=== PATIENT | male | born 1985 | race African-American/Black ===

== ENCOUNTER 2018-11-23 15:57 | Inpatient (IN) | payer OTHER, MEDICAID ==
[2018-11-23] VITALS (19 sets, daily range): BP systolic 98–153; BP diastolic 49–82
[~2018-11-23] VITALS: Ht 172.7 cm; Wt 78.0 kg
[2018-11-23] MEDS ORDERED: ONDANSETRON HCL 4MG/2ML INJ IV STA (16:12)
[2018-11-23] MEDS ORDERED: MORPHINE SULFATE 4 MG/ML CPJ (NOT FOR IM USE) IV STA (16:12)
[2018-11-23] MEDS ORDERED: SODIUM CHLORIDE 0.9% 1000ML BAG (SEPSIS BOLUS) IV ONE (16:15)
[2018-11-23] MEDS ORDERED: INSULIN REGULAR (DRIP) 100 UNITS in SODIUM CHLORIDE 0.9% 100 ML IV ONE (16:30)
[2018-11-23 16:48] LABS: BG CARBOXYHEMOGLOBIN 0.3 % (0.5-1.5); BG DEOXYHEMOGLOBIN 1.8 % (0.0-5.0); BG FRACTION INSPIRED OXYGEN 21; BG METHEMOGLOBIN 0.3 % (0.0-1.5); BG OXYGEN SATURATION 98.2 % (92.0-98.5); BG OXYHEMOGLOBIN 97.6 % (94.0-97.0); BG PCO2 < 8.9 mmHg (35.0-45.0); BG PH 7.083 (7.350-7.450); BG PO2 139.5 mmHg (75.0-100.0); BG SAMPLE SITE RIGHT BRACHIAL; BG TOTAL HEMOGLOBIN 16.4 g/dL (12.0-18.0); BG VENT MODE ROOM AIR
[2018-11-23 16:53] LABS: BASOPHILS % 0.9 % (0.0-2.0); EOSINOPHILS % 0.1 % (0.0-5.0); HEMATOCRIT. 51.9 % (42.0-52.0); HEMOGLOBIN. 16.8 g/dL (14.0-18.0); LYMPHOCYTES % 9.6 % (20.0-50.0); MEAN CORPUSCULAR HEMOGLOBIN 31.7 pg (28.0-32.0); MEAN CORPUSCULAR VOLUME 97.9 fL (80.0-94.0); MEAN PLATELET VOLUME 9.2 fl (7.4-10.4); MONOCYTES % 7.5 % (2.0-8.0); NEUTROPHILS % 81.9 % (40.0-76.0); PLATELET 447 x1000/uL (130-400); RED CELL DISTRIBUTION WIDTH 15.5 % (11.6-14.6)
[2018-11-23 16:59] LABS: INR 0.9; PROTHROMBIN TIME 9.6 sec (9.6-11.0)
[2018-11-23 17:17] LABS: CHLORIDE 103 mEq/L (98-107)
[2018-11-23 17:20] LABS: ETHANOL BLOOD < 10 mg/dL
[2018-11-23] MEDS ORDERED: INSULIN REGULAR (DRIP) 100 UNITS in SODIUM CHLORIDE 0.9% 99 ML IV ONE (17:45)
[2018-11-23] MEDS ORDERED: SODIUM CHLORIDE 0.9% 1,000 ML IV ONE (17:48)
[2018-11-23 17:52] LABS: BETA HYDROXYBUTYRATE 15.3 mMol/L (0.0-0.3)
[2018-11-23] MEDS ORDERED: LACTATED RINGERS 1,000 ML IV SCH (18:00)
[2018-11-23] MEDS ORDERED: CEFTRIAXONE 1 G PREMIX 50 ML IV ONE (18:00)
[2018-11-23 18:53] LABS: CLARITY URINE CLEAR (CLEAR); COLOR URINE YELLOW (YELLOW); KETONES URINE 4+ (NEGATIVE); LEUKOCYTE ESTERASE URINE NEGATIVE (NEGATIVE); NITRITE URINE NEGATIVE (NEGATIVE); OCCULT BLOOD URINE 1+ (NEGATIVE); PROTEIN URINE 1+ (NEGATIVE); SPECIFIC GRAVITY URINE 1.018 (1.005-1.030); UROBILINOGEN URINE 0.2 E.U./dL (0.2-1.0)
[2018-11-23 19:20] LABS: *AMPHETAMINES SCREEN URINE NEGATIVE (NEGATIVE); *BARBITURATES SCREEN URINE NEGATIVE (NEGATIVE); *BENZODIAZEPINES SCREEN URINE NEGATIVE (NEGATIVE); *COCAINE SCREEN URINE NEGATIVE (NEGATIVE)
[2018-11-23 19:21] LABS: CANNABINOID URINE SCREEN NEGATIVE (NEGATIVE); METHADONE URINE SCREEN NEGATIVE (NEGATIVE); OPIATES URINE SCREEN PRESUMTIVE POSITIVE (NEGATIVE); PHENCYCLIDINE URINE SCREEN NEGATIVE (NEGATIVE)
[2018-11-23 19:24] LABS: CREATINE KINASE MB FRACTION < 1.0 ng/mL (0.5-3.6)
[2018-11-23 19:33] LABS: CREATINE KINASE 192 IU/L (39-308)
[2018-11-23] MEDS ORDERED: INSULIN REGULAR (DRIP) 100 UNITS in SODIUM CHLORIDE 0.9% 100 ML IV SCH (20:15)
[2018-11-23] MEDS ORDERED: DEXTROSE 50% WATER 50ML SYRINGE IV PRN ×3 (20:15→20:45)
[2018-11-23] MEDS ORDERED: ONDANSETRON HCL 4MG/2ML INJ IV PRN (20:15)
[2018-11-23] MEDS: SODIUM CHLORIDE 0.9% 1,000 ML IV SCH (20:51)
[2018-11-23] MEDS: BLOOD SUGAR DIAGNOSTIC STRIP TEST SCH ×3 (21:00→23:05)
[2018-11-23] MEDS: INSULIN REGULAR (DRIP) 100 UNITS in SODIUM CHLORIDE 0.9% 99 ML IV SCH (21:27)
[2018-11-23 21:36] LABS: BG BASE EXCESS -22.5 mmol/L (-2.0-2.0); BG CARBOXYHEMOGLOBIN 0.2 % (0.5-1.5); BG DEOXYHEMOGLOBIN 1.7 % (0.0-5.0); BG FRACTION INSPIRED OXYGEN 21; BG HCO3 ACT 4.3 mmol/L (22.0-26.0); BG METHEMOGLOBIN 0.3 % (0.0-1.5); BG OXYGEN SATURATION 98.3 % (92.0-98.5); BG OXYHEMOGLOBIN 97.8 % (94.0-97.0); BG PCO2 13.5 mmHg (35.0-45.0); BG PH 7.125 (7.350-7.450); BG PO2 127.7 mmHg (75.0-100.0); BG SAMPLE SITE RIGHT RADIAL; BG TOTAL HEMOGLOBIN 14.9 g/dL (12.0-18.0); BG VENT MODE ROOM AIR
[2018-11-24] VITALS (88 sets, daily range): BP systolic 94–153; BP diastolic 35–111
[2018-11-24] MEDS: MORPHINE SULFATE 2 MG/ML CPJ (NOT FOR IM USE) IV PRN ×4 (00:37→22:38)
[2018-11-24] MEDS: BLOOD SUGAR DIAGNOSTIC STRIP TEST SCH ×24 (01:08→23:00)
[2018-11-24] MEDS: SODIUM CHLORIDE 0.9% 1,000 ML IV SCH ×2 (04:28→12:48)
[2018-11-24 09:37] LABS: BG BASE EXCESS -14.7 mmol/L (-2.0-2.0); BG CARBOXYHEMOGLOBIN 0.6 % (0.5-1.5); BG DEOXYHEMOGLOBIN 2.1 % (0.0-5.0); BG FRACTION INSPIRED OXYGEN 21; BG HCO3 ACT 10.3 mmol/L (22.0-26.0); BG METHEMOGLOBIN 0.3 % (0.0-1.5); BG OXYGEN SATURATION 97.9 % (92.0-98.5); BG PCO2 23.5 mmHg (35.0-45.0); BG PH 7.259 (7.350-7.450); BG PO2 98.4 mmHg (75.0-100.0); BG SAMPLE SITE RIGHT RADIAL; BG TOTAL HEMOGLOBIN 15.5 g/dL (12.0-18.0); BG VENT MODE ROOM AIR
[2018-11-24 11:29] LABS: HEMATOCRIT. 43.5 % (42.0-52.0); HEMOGLOBIN. 14.7 g/dL (14.0-18.0); MEAN CORPUSCULAR HEMOGLOBIN 30.7 pg (28.0-32.0); MEAN CORPUSCULAR VOLUME 91.1 fL (80.0-94.0); PLATELET 349 x1000/uL (130-400); RED BLOOD CELL COUNT 4.77 mill/uL (4.7-6.1); RED CELL DISTRIBUTION WIDTH 14.3 % (11.6-14.6)
[2018-11-24 12:07] LABS: CHLORIDE 111 mEq/L (98-107)
[2018-11-24 12:13] LABS: PHOSPHORUS 1.6 mg/dL (2.5-4.9)
[2018-11-24] MEDS: METOCLOPRAMIDE HCL 10MG/2ML VIAL IV SCH ×2 (13:29→18:05)
[2018-11-24] MEDS ORDERED: POTASSIUM PHOS,M-BASIC-D-BASIC 15 MMOL in DEXT 5% WATER 245 ML IV ONE (14:00)
[2018-11-24 14:36] LABS: PLATELET ESTIMATE NORMAL
[2018-11-24 16:31] LABS: AMYLASE 2236 IU/L (25-115)
[2018-11-24] MEDS: CEFTRIAXONE 1 G PREMIX 50 ML IV SCH (20:28)
[2018-11-24] MEDS: DEXT 5%/0.45% NACL KCL 30MEQ/L 1,000 ML IV SCH (20:28)
[2018-11-25] VITALS (57 sets, daily range): BP systolic 99–146; BP diastolic 47–72
[2018-11-25] MEDS: BLOOD SUGAR DIAGNOSTIC STRIP TEST SCH ×14 (01:32→23:58)
[2018-11-25] MEDS: DEXT 5%/0.45% NACL KCL 30MEQ/L 1,000 ML IV SCH ×3 (04:04→17:55)
[2018-11-25] MEDS: INSULIN REGULAR (DRIP) 100 UNITS in SODIUM CHLORIDE 0.9% 99 ML IV SCH (06:21)
[2018-11-25] MEDS: METOCLOPRAMIDE HCL 10MG/2ML VIAL IV SCH ×4 (06:21→18:45)
[2018-11-25 08:26] LABS: BASOPHILS % 0.3 % (0.0-2.0); EOSINOPHILS % 0.5 % (0.0-5.0); HEMATOCRIT. 35.7 % (42.0-52.0); HEMOGLOBIN. 12.3 g/dL (14.0-18.0); LYMPHOCYTES % 7.7 % (20.0-50.0); MEAN CORPUSCULAR HEMOGLOBIN 31.3 pg (28.0-32.0); MEAN CORPUSCULAR VOLUME 90.8 fL (80.0-94.0); MEAN PLATELET VOLUME 8.8 fl (7.4-10.4); MONOCYTES % 8.8 % (2.0-8.0); NEUTROPHILS % 82.7 % (40.0-76.0); PLATELET 235 x1000/uL (130-400); RED BLOOD CELL COUNT 3.93 mill/uL (4.7-6.1); RED CELL DISTRIBUTION WIDTH 14.7 % (11.6-14.6)
[2018-11-25 08:56] LABS: CHLORIDE 109 mEq/L (98-107)
[2018-11-25 09:03] LABS: BETA HYDROXYBUTYRATE 1.6 mMol/L (0.0-0.3)
[2018-11-25 09:04] LABS: AMYLASE 802 IU/L (25-115)
[2018-11-25] MEDS ORDERED: POTASSIUM CHLORIDE INJ 40 MEQ in DEXT 5% WATER 250 ML IV NR (10:30)
[2018-11-25] MEDS ORDERED: DEXTROSE 50% WATER 50ML SYRINGE IV PRN (13:30)
[2018-11-25] MEDS: INSULIN LISPRO 100 UNITS/ML SUBCUT SCH ×2 (16:52→20:18)
[2018-11-25] MEDS: CEFTRIAXONE 1 G PREMIX 50 ML IV SCH (20:29)
[2018-11-25] MEDS ORDERED: INSULIN GLARGINE UD 100 UNITS/ML SYR SUBCUT SCH (22:00)
[2018-11-26] VITALS (13 sets, daily range): BP systolic 87–121; BP diastolic 44–70
[2018-11-26] MEDS: METOCLOPRAMIDE HCL 10MG/2ML VIAL IV SCH ×4 (00:02→18:00)
[2018-11-26] MEDS: INSULIN LISPRO 100 UNITS/ML SUBCUT SCH ×4 (00:02→17:30)
[2018-11-26] MEDS: DEXT 5%/0.45% NACL KCL 30MEQ/L 1,000 ML IV SCH ×2 (00:37→06:03)
[2018-11-26] MEDS: BLOOD SUGAR DIAGNOSTIC STRIP TEST SCH ×3 (04:20→17:30)
[2018-11-26 06:48] LABS: BASOPHILS % 0.4 % (0.0-2.0); EOSINOPHILS % 1.9 % (0.0-5.0); HEMATOCRIT. 33.5 % (42.0-52.0); HEMOGLOBIN. 11.4 g/dL (14.0-18.0); LYMPHOCYTES % 25.2 % (20.0-50.0); MEAN CORPUSCULAR HEMOGLOBIN 31.2 pg (28.0-32.0); MEAN CORPUSCULAR VOLUME 91.5 fL (80.0-94.0); MEAN PLATELET VOLUME 8.5 fl (7.4-10.4); MONOCYTES % 12.2 % (2.0-8.0); NEUTROPHILS % 60.3 % (40.0-76.0); PLATELET 212 x1000/uL (130-400); RED BLOOD CELL COUNT 3.66 mill/uL (4.7-6.1); RED CELL DISTRIBUTION WIDTH 14.5 % (11.6-14.6)
[2018-11-26 07:34] LABS: CHLORIDE 107 mEq/L (98-107)
[2018-11-26 07:36] LABS: AMYLASE 283 IU/L (25-115)
[2018-11-26] MEDS ORDERED: POTASSIUM CHLORIDE 20MEQ/PACKET PO NR (08:00)
[2018-11-26] MEDS ORDERED: POTASSIUM CHLORIDE INJ 40 MEQ in DEXT 5% WATER 250 ML IV ONE (08:00)
[2018-11-26 08:06] LABS: PHOSPHORUS 1.8 mg/dL (2.5-4.9)
[2018-11-26] MEDS ORDERED: INSULIN GLARGINE UD 100 UNITS/ML SYR SUBCUT SCH (10:00)
== END 2018-11-26 18:30 | disposition home or self-care (01) | DRG 420 ==
LOC: ER 17:02 → 5EST 17:26 → EDBD 17:26 → EDBEDREQ 17:28 → ENRESERV 18:14
PROVIDERS: ADMIT Family Medicine Adult Medicine; ATTEND Family Medicine Adult Medicine
DX: E11.10 Type 2 diabetes mellitus with ketoacidosis without coma (principal); G93.41 Metabolic encephalopathy; K85.90 Acute pancreatitis without necrosis or infection, unspecified; R65.10 Systemic inflammatory response syndrome (SIRS) of non-infectious origin without acute organ dysfunction; K31.84 Gastroparesis; E11.43 Type 2 diabetes mellitus with diabetic autonomic (poly)neuropathy; N39.0 Urinary tract infection, site not specified; E87.6 Hypokalemia; B95.1 Streptococcus, group B, as the cause of diseases classified elsewhere; K82.4 Cholesterolosis of gallbladder; Z79.4 Long term (current) use of insulin; Z83.3 Family history of diabetes mellitus; Z91.19 Patient's noncompliance with other medical treatment and regimen
CPT/HCPCS: 36415; 36600; 71045; 74176; 76700; 80048; 80305; 80320; 81003; 82010; 82150; 82375; 82550; 82553; 82805; 82962; 83605; 83735; 83880; 84100; 84145; 84484; 87077; 93005; 93970; 96374; 99285; J0696; J1815; J2270; J2405; J2765; J3480; J3490; J7030; J7050; J7060; G0480

== ENCOUNTER 2019-04-03 08:17 | Inpatient (IN) | payer SELFPAY ==
[~2019-04-03] VITALS: Ht 175.3 cm; Wt 86.3 kg
[2019-04-03] MEDS ORDERED: SODIUM CHLORIDE 0.9% 1,000 ML IV ONE (10:26)
[2019-04-03] MEDS ORDERED: KETOROLAC 30MG/ML VIAL IV STA (10:26)
[2019-04-03 10:42] LABS: BG BASE EXCESS -1.6 mmol/L (-2.0-2.0); BG CARBOXYHEMOGLOBIN 0.7 % (0.5-1.5); BG HCO3 ACT 23.2 mmol/L (22.0-26.0); BG METHEMOGLOBIN 0.2 % (0.0-1.5); BG OXYHEMOGLOBIN 96.1 % (94.0-97.0); BG PCO2 39.5 mmHg (35.0-45.0); BG PH 7.387 (7.350-7.450); BG PO2 89.2 mmHg (75.0-100.0); BG SAMPLE SITE RIGHT BRACHIAL; BG TOTAL HEMOGLOBIN 14.9 g/dL (12.0-18.0); BG VENT MODE ROOM AIR
[2019-04-03 10:43] LABS: BASOPHILS % 0.5 % (0.0-2.0); EOSINOPHILS % 1.1 % (0.0-5.0); HEMATOCRIT. 44.9 % (42.0-52.0); HEMOGLOBIN. 15.3 g/dL (14.0-18.0); LYMPHOCYTES % 19.3 % (20.0-50.0); MEAN CORPUSCULAR HEMOGLOBIN 29.2 pg (28.0-32.0); MEAN CORPUSCULAR VOLUME 85.7 fL (80.0-94.0); MEAN PLATELET VOLUME 8.1 fl (7.4-10.4); MONOCYTES % 6.3 % (2.0-8.0); NEUTROPHILS % 72.8 % (40.0-76.0); PLATELET 304 x1000/uL (130-400); RED BLOOD CELL COUNT 5.24 mill/uL (4.7-6.1); RED CELL DISTRIBUTION WIDTH 13.6 % (11.6-14.6)
[2019-04-03 10:49] LABS: CHLORIDE 102 mEq/L (98-107)
[2019-04-03] MEDS ORDERED: POTASSIUM CHLORIDE 20MEQ TABLET SR PO ONE (11:15)
[2019-04-03] MEDS ORDERED: POTASSIUM CHLORIDE INJ 40 MEQ in DEXT 5% WATER 250 ML IV ONE (11:15)
[2019-04-03 11:54] LABS: CLARITY URINE CLEAR (CLEAR); COLOR URINE YELLOW (YELLOW); KETONES URINE TRACE (NEGATIVE); LEUKOCYTE ESTERASE URINE NEGATIVE (NEGATIVE); NITRITE URINE NEGATIVE (NEGATIVE); OCCULT BLOOD URINE NEGATIVE (NEGATIVE); PH URINE 5.5 (4.5-8.0); PROTEIN URINE NEGATIVE (NEGATIVE); SPECIFIC GRAVITY URINE 1.033 (1.005-1.030); UROBILINOGEN URINE 0.2 E.U./dL (0.2-1.0)
[2019-04-03] MEDS ORDERED: ONDANSETRON HCL 4MG/2ML INJ IV PRN (15:15)
[2019-04-03] MEDS ORDERED: HYDROCODONE/ACETAMINOPHEN 5/325MG TABLET PO PRN (15:15)
[2019-04-03] MEDS ORDERED: ACETAMINOPHEN 325MG TABLET PO PRN (15:15)
[2019-04-03] MEDS ORDERED: GUAIFENESIN 200MG/10ML SUGAR FREE UDC PO PRN (15:15)
[2019-04-03] MEDS ORDERED: CLONIDINE 0.1MG TABLET PO PRN (15:15)
[2019-04-03] MEDS ORDERED: MAGNESIUM/ALUMINUM HYDROXIDE/SIMETHICONE 30ML UDC PO PRN (15:15)
[2019-04-03] MEDS ORDERED: DOCUSATE SODIUM 100MG CAPSULE PO PRN (15:15)
[2019-04-04] VITALS: BP 116/75
[2019-04-04 00:02] VITALS: BP 116/75
[2019-04-04] MEDS ORDERED: INSU500I SQ (00:55)
[2019-04-04] MEDS ORDERED: NPH,100I SQ (00:55)
[2019-04-04] MEDS ORDERED: KCL 10MEQ/50ML PREMIX 50 ML IV NR ×2 (01:00→03:00)
[2019-04-04] MEDS ORDERED: POTASSIUM CHLORIDE INJ 10 MEQ in SODIUM CHLORIDE 0.9% 100 ML IV NR (04:00)
[2019-04-04 04:04] VITALS: BP 106/67
[2019-04-04 07:04] LABS: HEMATOCRIT. 38.4 % (42.0-52.0); HEMOGLOBIN. 13.1 g/dL (14.0-18.0); MEAN CORPUSCULAR HEMOGLOBIN 29.2 pg (28.0-32.0); MEAN CORPUSCULAR VOLUME 85.7 fL (80.0-94.0); MEAN PLATELET VOLUME 8.2 fl (7.4-10.4); PLATELET 282 x1000/uL (130-400); RED BLOOD CELL COUNT 4.48 mill/uL (4.7-6.1)
[2019-04-04 07:47] LABS: CHLORIDE 110 mEq/L (98-107)
[2019-04-04 08:00] VITALS: BP 112/82
[2019-04-04] MEDS ORDERED: MULTIVITAMINS,THER W-MINERALS TABLET PO SCH (09:00)
[2019-04-04 12:00] VITALS: BP 113/82
[2019-04-04] MEDS ORDERED: MAGNESIUM 1 G PREMIX 100 ML IV SCH (13:00)
[2019-04-04 13:46] LABS: PLATELET ESTIMATE NORMAL
== END 2019-04-04 15:45 | disposition home or self-care (01) | DRG 425 ==
LOC: ER 08:46 → 6WST 11:24 → EDBEDREQ 22:51 → ENRESERV 22:59
PROVIDERS: ADMIT Hospitalist; ATTEND Hospitalist
DX: E87.6 Hypokalemia (principal); E11.65 Type 2 diabetes mellitus with hyperglycemia; M62.81 Muscle weakness (generalized); E87.5 Hyperkalemia; F17.200 Nicotine dependence, unspecified, uncomplicated; R94.31 Abnormal electrocardiogram [ECG] [EKG]; Z83.3 Family history of diabetes mellitus
CPT/HCPCS: 36415; 36600; 71045; 81003; 82375; 82805; 82962; 83735; 87804; 93005; 93970; 99291; J1885; J3475; J3480; J7030; J7050; J7060

== ENCOUNTER 2020-12-31 07:55 | Inpatient (IN) | payer MEDICAID, OTHER ==
[~2020-12-31] VITALS: Ht 172.7 cm; Wt 80.3 kg
[~2020-12-31 07:55] MED LIST: INSU500I SQ; NPH,100I SQ
[2020-12-31] MEDS ORDERED: LACTATED RINGERS 1,000 ML IV SCH (08:45)
[2020-12-31] MEDS ORDERED: SODIUM CHLORIDE 0.9% 1,000 ML IV ONE (08:45)
[2020-12-31 09:19] LABS: BASOPHILS % 0.7 % (0.0-2.0); HEMATOCRIT. 51.9 % (42.0-52.0); HEMOGLOBIN. 17.7 g/dL (14.0-18.0); LYMPHOCYTES % 9.1 % (20.0-50.0); MEAN CORPUSCULAR HEMOGLOBIN 30.7 pg (28.0-32.0); MEAN CORPUSCULAR VOLUME 90.2 fL (80.0-94.0); MEAN PLATELET VOLUME 8.2 fl (7.4-10.4); NEUTROPHILS % 84.2 % (40.0-76.0); PLATELET 252 x1000/uL (130-400); RED BLOOD CELL COUNT 5.75 mill/uL (4.7-6.1); RED CELL DISTRIBUTION WIDTH 13.6 % (11.6-14.6)
[2020-12-31 09:22] LABS: CHLORIDE 98 mEq/L (98-107)
[2020-12-31 09:54] LABS: BG BASE EXCESS -23.7 mmol/L (-2.0-2.0); BG CARBOXYHEMOGLOBIN 0.3 % (0.5-1.5); BG DEOXYHEMOGLOBIN 5.4 % (0.0-5.0); BG FRACTION INSPIRED OXYGEN 21; BG HCO3 ACT 3.3 mmol/L (22.0-26.0); BG METHEMOGLOBIN 0.3 % (0.0-1.5); BG OXYGEN SATURATION 94.6 % (92.0-98.5); BG PCO2 10.7 mmHg (35.0-45.0); BG PH 7.104 (7.350-7.450); BG PO2 80.4 mmHg (75.0-100.0); BG SAMPLE SITE LEFT RADIAL; BG TOTAL HEMOGLOBIN 16.4 g/dL (12.0-18.0); BG VENT MODE ROOM AIR
[2020-12-31] MEDS ORDERED: ONDANSETRON HCL 4MG/2ML INJ IV STA (10:23)
[2020-12-31] MEDS ORDERED: DOXYCYCLINE HYCLATE 100 MG/VIAL IV ONE (10:30)
[2020-12-31] MEDS ORDERED: SODIUM CHL 0.45% + KCL 20MEQ/L 1,000 ML IV SCH (10:30)
[2020-12-31] MEDS ORDERED: INSULIN REGULAR (DRIP) 100 UNITS in SODIUM CHLORIDE 0.9% 100 ML IV ONE (10:30)
[2020-12-31] MEDS ORDERED: CEFTRIAXONE 1 G PREMIX 50 ML IV SCH ×2 (10:30→13:00)
[2020-12-31] MEDS ORDERED: DOXYCYCLINE 100 MG in DEXT 5% WATER 100 ML IV SCH (11:00)
[2020-12-31 12:15] LABS: CHLORIDE 104 mEq/L (98-107)
[2020-12-31 12:23] LABS: PHOSPHORUS 4.3 mg/dL (2.5-4.9)
[2020-12-31] MEDS ORDERED: DOCUSATE SODIUM 100MG CAPSULE PO PRN (12:45)
[2020-12-31] MEDS ORDERED: HYDROMORPHONE HCL/PF 2MG/ML CPJ IV PRN (12:45)
[2020-12-31] MEDS ORDERED: ONDANSETRON HCL 4MG/2ML INJ IV PRN (12:45)
[2020-12-31] MEDS ORDERED: MAGNESIUM/ALUMINUM HYDROXIDE/SIMETHICONE 30ML UDC PO PRN (12:45)
[2020-12-31] MEDS ORDERED: DEXTROSE 50% WATER 50ML SYRINGE IV PRN (12:45)
[2020-12-31] MEDS ORDERED: INSULIN REGULAR (DRIP) 100 UNITS in SODIUM CHLORIDE 0.9% 100 ML IV SCH (12:45)
[2020-12-31] MEDS ORDERED: AZITHROMYCIN 500 MG in DEXT 5% WATER 250 ML IV SCH (13:00)
[2020-12-31] MEDS ORDERED: DEXAMETHASONE 4MG/ML 1ML VIAL IV SCH (13:00)
[2020-12-31] MEDS: SODIUM CHLORIDE 0.9% 1,000 ML IV SCH ×2 (13:08→22:28)
[2020-12-31] MEDS: BLOOD SUGAR DIAGNOSTIC STRIP TEST SCH ×10 (13:29→23:45)
[2020-12-31] MEDS ORDERED: NALOXONE HCL 0.4MG/ML VIAL IV PRN (14:15)
[2020-12-31 15:32] LABS: CHLORIDE 110 mEq/L (98-107)
[2020-12-31 18:08] LABS: CHLORIDE 112 mEq/L (98-107)
[2020-12-31 20:23] LABS: CHLORIDE 111 mEq/L (98-107)
[2020-12-31 22:00] VITALS: BP 120/74
[2020-12-31] MEDS: INSULIN REGULAR (DRIP) 100 UNITS in SODIUM CHLORIDE 0.9% 99 ML IV SCH (22:27)
[2020-12-31 22:30] VITALS: BP 115/72
[2020-12-31 23:00] VITALS: BP 107/76
[2020-12-31 23:30] VITALS: BP 105/73
[2021-01-01] VITALS (47 sets, daily range): BP systolic 107–138; BP diastolic 58–80
[2021-01-01] MEDS: BLOOD SUGAR DIAGNOSTIC STRIP TEST SCH ×23 (01:28→23:45)
[2021-01-01 05:47] LABS: BASOPHILS % 0.2 % (0.0-2.0); HEMOGLOBIN. 14.3 g/dL (14.0-18.0); LYMPHOCYTES % 10.8 % (20.0-50.0); MEAN CORPUSCULAR HEMOGLOBIN 30.2 pg (28.0-32.0); MEAN CORPUSCULAR VOLUME 86.5 fL (80.0-94.0); MEAN PLATELET VOLUME 8.6 fl (7.4-10.4); MONOCYTES % 4.1 % (2.0-8.0); NEUTROPHILS % 84.9 % (40.0-76.0); PLATELET 245 x1000/uL (130-400); RED BLOOD CELL COUNT 4.74 mill/uL (4.7-6.1); RED CELL DISTRIBUTION WIDTH 12.8 % (11.6-14.6)
[2021-01-01 05:49] LABS: CHLORIDE 111 mEq/L (98-107)
[2021-01-01] MEDS: SODIUM CHLORIDE 0.9% 1,000 ML IV SCH (09:24)
[2021-01-01] MEDS: DEXAMETHASONE 10 MG/ML VIAL IV SCH (09:24)
[2021-01-01] MEDS ORDERED: SODIUM CHL 0.45% + KCL 20MEQ/L 1,000 ML IV SCH (10:30)
[2021-01-01] MEDS: DEXT 5%/0.45% NACL KCL 10MEQ/L 1,000 ML IV SCH ×2 (13:19→23:00)
[2021-01-01] MEDS: CEFTRIAXONE 1,000 MG in DEXTROSE 5% WATER 50 ML IV SCH (14:21)
[2021-01-01] MEDS: AZITHROMYCIN 500 MG in DEXT 5% WATER 250 ML IV SCH (14:21)
[2021-01-01 16:31] LABS: CHLORIDE 112 mEq/L (98-107)
[2021-01-01] MEDS: OMEPRAZOLE 20MG CAPSULE EXTENDED RELEASE PO SCH (18:45)
[2021-01-01] MEDS: INSULIN REGULAR (DRIP) 100 UNITS in SODIUM CHLORIDE 0.9% 99 ML IV SCH (19:35)
[2021-01-01 23:02] LABS: CHLORIDE 109 mEq/L (98-107)
[2021-01-02] VITALS (43 sets, daily range): BP systolic 106–141; BP diastolic 55–80
[2021-01-02] MEDS: BLOOD SUGAR DIAGNOSTIC STRIP TEST SCH ×17 (00:45→20:45)
[2021-01-02 05:26] LABS: HEMATOCRIT. 37.1 % (42.0-52.0); HEMOGLOBIN. 13.5 g/dL (14.0-18.0); MEAN CORPUSCULAR HEMOGLOBIN 30.5 pg (28.0-32.0); MEAN CORPUSCULAR VOLUME 84.2 fL (80.0-94.0); MEAN PLATELET VOLUME 8.4 fl (7.4-10.4); PLATELET 220 x1000/uL (130-400); RED BLOOD CELL COUNT 4.41 mill/uL (4.7-6.1); RED CELL DISTRIBUTION WIDTH 12.5 % (11.6-14.6)
[2021-01-02 05:35] LABS: D-DIMER 2.12 mg/L FEU (<0.50); INR 0.9; PROTHROMBIN TIME 10.2 sec (9.6-11.0)
[2021-01-02 05:36] LABS: CHLORIDE 109 mEq/L (98-107)
[2021-01-02] MEDS: OMEPRAZOLE 20MG CAPSULE EXTENDED RELEASE PO SCH ×2 (06:07→20:32)
[2021-01-02] MEDS ORDERED: POTASSIUM CHLORIDE INJ 40 MEQ in DEXT 5% WATER 500 ML IV SCH (08:00)
[2021-01-02] MEDS: CEFTRIAXONE 1,000 MG in DEXTROSE 5% WATER 50 ML IV SCH (08:02)
[2021-01-02] MEDS: DEXAMETHASONE 10 MG/ML VIAL IV SCH (08:03)
[2021-01-02] MEDS: DEXT 5%/0.45% NACL KCL 10MEQ/L 1,000 ML IV SCH (08:07)
[2021-01-02] MEDS ORDERED: POTASSIUM CHLORIDE 20MEQ TABLET SR PO NR (11:00)
[2021-01-02] MEDS: INSULIN REGULAR (DRIP) 100 UNITS in SODIUM CHLORIDE 0.9% 99 ML IV SCH (11:16)
[2021-01-02] MEDS: AZITHROMYCIN 500 MG in DEXT 5% WATER 250 ML IV SCH (11:16)
[2021-01-02 12:57] LABS: PLATELET ESTIMATE NORMAL
[2021-01-02] MEDS: INSULIN GLARGINE UD 100 UNITS/ML SYR SUBCUT SCH ×2 (15:27→23:37)
[2021-01-02 16:28] LABS: *AMPHETAMINES SCREEN URINE NEGATIVE (NEGATIVE); *BARBITURATES SCREEN URINE NEGATIVE (NEGATIVE); *BENZODIAZEPINES SCREEN URINE NEGATIVE (NEGATIVE); *COCAINE SCREEN URINE NEGATIVE (NEGATIVE); METHADONE URINE SCREEN NEGATIVE (NEGATIVE); OPIATES URINE SCREEN NEGATIVE (NEGATIVE); PHENCYCLIDINE URINE SCREEN NEGATIVE (NEGATIVE)
[2021-01-02 16:29] LABS: CANNABINOID URINE SCREEN NEGATIVE (NEGATIVE)
[2021-01-02 17:00] LABS: CHLORIDE 111 mEq/L (98-107)
[2021-01-02] MEDS ORDERED: DEXTROSE 50% WATER 50ML SYRINGE IV PRN (18:00)
[2021-01-02] MEDS: INSULIN LISPRO 100 UNITS/ML SUBCUT SCH (20:33)
[2021-01-03] VITALS (24 sets, daily range): BP systolic 92–152; BP diastolic 52–83
[2021-01-03] MEDS: GUAIFENESIN 200MG/10ML SUGAR FREE UDC PO PRN (02:39)
[2021-01-03 05:21] LABS: HEMATOCRIT. 38.2 % (42.0-52.0); HEMOGLOBIN. 13.7 g/dL (14.0-18.0); MEAN CORPUSCULAR VOLUME 83.8 fL (80.0-94.0); MEAN PLATELET VOLUME 8.8 fl (7.4-10.4); PLATELET 285 x1000/uL (130-400); RED BLOOD CELL COUNT 4.56 mill/uL (4.7-6.1); RED CELL DISTRIBUTION WIDTH 12.8 % (11.6-14.6)
[2021-01-03 05:29] LABS: CHLORIDE 109 mEq/L (98-107)
[2021-01-03] MEDS: OMEPRAZOLE 20MG CAPSULE EXTENDED RELEASE PO SCH ×2 (06:02→22:24)
[2021-01-03] MEDS: INSULIN LISPRO 100 UNITS/ML SUBCUT SCH ×4 (06:02→22:25)
[2021-01-03] MEDS: BLOOD SUGAR DIAGNOSTIC STRIP TEST SCH ×4 (07:25→21:00)
[2021-01-03] MEDS: CEFTRIAXONE 1,000 MG in DEXTROSE 5% WATER 50 ML IV SCH (08:47)
[2021-01-03] MEDS: DEXAMETHASONE 10 MG/ML VIAL IV SCH (08:47)
[2021-01-03] MEDS ORDERED: ALBUTEROL 6.7GM HFA INHALER ORI PRN (11:00)
[2021-01-03] MEDS: ENOXAPARIN 40MG/0.4ML SYR SUBCUT SCH (12:06)
[2021-01-03] MEDS: AZITHROMYCIN 500 MG in DEXT 5% WATER 250 ML IV SCH (12:07)
[2021-01-03 12:32] LABS: BG BASE EXCESS -11.8 mmol/L (-2.0-2.0); BG CARBOXYHEMOGLOBIN 0.4 % (0.5-1.5); BG OXYHEMOGLOBIN 91.6 % (94.0-97.0); BG PCO2 16.7 mmHg (35.0-45.0); BG PH 7.397 (7.350-7.450); BG PO2 56.8 mmHg (75.0-100.0); BG SAMPLE SITE RIGHT BRACHIAL; BG TOTAL HEMOGLOBIN 14.5 g/dL (12.0-18.0); BG VENT MODE VAPOTHERM
[2021-01-03] MEDS ORDERED: IOHEXOL-350 100 ML BOTTLE ONE (12:37)
[2021-01-03 14:51] LABS: PLATELET ESTIMATE NORMAL
[2021-01-03] MEDS: ACETAMINOPHEN 325MG TABLET PO PRN (17:42)
[2021-01-03] MEDS: INSULIN GLARGINE UD 100 UNITS/ML SYR SUBCUT SCH (22:24)
[2021-01-04] VITALS: BP 105/60
[2021-01-04] MEDS: SODIUM BICARBONATE 100 MEQ in SODIUM CHLORIDE 0.45% 1,000 ML IV SCH (00:10)
[2021-01-04] MEDS: GUAIFENESIN 200MG/10ML SUGAR FREE UDC PO PRN ×2 (01:44→08:24)
[2021-01-04 04:00] VITALS: BP 105/50
[2021-01-04 08:00] VITALS: BP 112/65
[2021-01-04] MEDS: OMEPRAZOLE 20MG CAPSULE EXTENDED RELEASE PO SCH (08:24)
[2021-01-04] MEDS: CEFTRIAXONE 1,000 MG in DEXTROSE 5% WATER 50 ML IV SCH (08:24)
[2021-01-04] MEDS: DEXAMETHASONE 10 MG/ML VIAL IV SCH (08:24)
[2021-01-04] MEDS: ENOXAPARIN 40MG/0.4ML SYR SUBCUT SCH (08:25)
[2021-01-04] MEDS: INSULIN LISPRO 100 UNITS/ML SUBCUT SCH ×4 (08:26→21:35)
[2021-01-04] MEDS: BLOOD SUGAR DIAGNOSTIC STRIP TEST SCH ×4 (08:26→21:35)
[2021-01-04] MEDS: AZITHROMYCIN 500 MG in DEXT 5% WATER 250 ML IV SCH (11:20)
[2021-01-04 12:00] VITALS: BP 115/63
[2021-01-04 16:00] VITALS: BP 113/62
[2021-01-04 20:00] VITALS: BP 11/78
[2021-01-04] MEDS: FAMOTIDINE 20MG TABLET PO SCH (21:34)
[2021-01-04] MEDS: ACETAMINOPHEN 325MG TABLET PO PRN (21:34)
[2021-01-04] MEDS: INSULIN GLARGINE UD 100 UNITS/ML SYR SUBCUT SCH (21:35)
[2021-01-05] VITALS (60 sets, daily range): BP systolic 64–174; BP diastolic 41–113
[2021-01-05] MEDS: ACETAMINOPHEN 325MG TABLET PO PRN (05:42)
[2021-01-05] MEDS: BLOOD SUGAR DIAGNOSTIC STRIP TEST SCH ×4 (07:40→20:46)
[2021-01-05] MEDS ORDERED: ETOMIDATE 2MG/ML 10ML VIAL IV ONE (08:09)
[2021-01-05] MEDS ORDERED: SUCCINYLCHOLINE CHLORIDE 200MG/10ML IV ONE (08:09)
[2021-01-05 08:17] LABS: BG CARBOXYHEMOGLOBIN 0.3 % (0.5-1.5); BG DEOXYHEMOGLOBIN 9.8 % (0.0-5.0); BG HCO3 ACT 12.3 mmol/L (22.0-26.0); BG METHEMOGLOBIN 0.3 % (0.0-1.5); BG OXYGEN SATURATION 90.1 % (92.0-98.5); BG OXYHEMOGLOBIN 89.6 % (94.0-97.0); BG PCO2 20.7 mmHg (35.0-45.0); BG PH 7.392 (7.350-7.450); BG PO2 55.4 mmHg (75.0-100.0); BG SAMPLE SITE RIGHT RADIAL; BG TOTAL HEMOGLOBIN 15.5 g/dL (12.0-18.0); BG VENT MODE MASK - BIPAP
[2021-01-05] MEDS: PROPOFOL 10MG/ML 100ML 100 ML IV PRN ×4 (09:00→22:45)
[2021-01-05 09:35] LABS: BG BASE EXCESS -12.9 mmol/L (-2.0-2.0); BG CARBOXYHEMOGLOBIN 0.2 % (0.5-1.5); BG DEOXYHEMOGLOBIN 18.3 % (0.0-5.0); BG HCO3 ACT 15.5 mmol/L (22.0-26.0); BG METHEMOGLOBIN 0.3 % (0.0-1.5); BG OXYGEN SATURATION 81.6 % (92.0-98.5); BG OXYHEMOGLOBIN 81.2 % (94.0-97.0); BG PCO2 44.8 mmHg (35.0-45.0); BG PH 7.158 (7.350-7.450); BG SAMPLE SITE RIGHT RADIAL; BG TOTAL HEMOGLOBIN 15.5 g/dL (12.0-18.0); BG VENT MODE VENT - AC
[2021-01-05] MEDS: FENTANYL CITRATE/PF 2,500 MCG in SODIUM CHLORIDE 0.9% 200 ML IV PRN ×2 (09:38→22:42)
[2021-01-05] MEDS: MIDAZOLAM HCL 100 MG in SODIUM CHLORIDE 0.9% 80 ML IV PRN ×2 (09:38→16:37)
[2021-01-05] MEDS ORDERED: SODIUM BICARBONATE 8.4% 1 MEQ/ML 50ML SYR IV SCH ×2 (10:15→11:15)
[2021-01-05 11:00] LABS: BG BASE EXCESS -14.1 mmol/L (-2.0-2.0); BG CARBOXYHEMOGLOBIN 0.3 % (0.5-1.5); BG DEOXYHEMOGLOBIN 0.9 % (0.0-5.0); BG HCO3 ACT 14.5 mmol/L (22.0-26.0); BG METHEMOGLOBIN 0.3 % (0.0-1.5); BG OXYGEN SATURATION 99.1 % (92.0-98.5); BG OXYHEMOGLOBIN 98.5 % (94.0-97.0); BG PCO2 43.3 mmHg (35.0-45.0); BG PH 7.142 (7.350-7.450); BG PO2 258.6 mmHg (75.0-100.0); BG SAMPLE SITE RIGHT RADIAL; BG TOTAL HEMOGLOBIN 15.8 g/dL (12.0-18.0); BG VENT MODE VENT - AC
[2021-01-05] MEDS ORDERED: VECURONIUM BROMIDE 50 MG in DEXTROSE 5% WATER 50 ML IV PRN (11:00)
[2021-01-05] MEDS: DEXAMETHASONE 10 MG/ML VIAL IV SCH (11:04)
[2021-01-05] MEDS: INSULIN LISPRO 100 UNITS/ML SUBCUT SCH ×4 (11:05→20:56)
[2021-01-05] MEDS ORDERED: LIDOCAINE HCL 1% 20ML VIAL (Pyxis) INJ ONE (11:13)
[2021-01-05] MEDS: FAMOTIDINE 20MG TABLET PO SCH ×2 (12:02→20:56)
[2021-01-05] MEDS: CEFTRIAXONE 1,000 MG in DEXTROSE 5% WATER 50 ML IV SCH (12:02)
[2021-01-05] MEDS: METOPROLOL TARTRATE 25MG TABLET PO SCH ×2 (12:02→20:35)
[2021-01-05] MEDS: ENOXAPARIN 40MG/0.4ML SYR SUBCUT SCH (12:05)
[2021-01-05] MEDS: NOREPINEPHRINE 8 MG in DEXT 5% WATER 242 ML IV PRN (14:33)
[2021-01-05 15:55] LABS: BG BASE EXCESS -1.3 mmol/L (-2.0-2.0); BG CARBOXYHEMOGLOBIN 0.7 % (0.5-1.5); BG DEOXYHEMOGLOBIN 2.3 % (0.0-5.0); BG FRACTION INSPIRED OXYGEN 100; BG HCO3 ACT 26.4 mmol/L (22.0-26.0); BG METHEMOGLOBIN 0.2 % (0.0-1.5); BG OXYGEN SATURATION 97.7 % (92.0-98.5); BG OXYHEMOGLOBIN 96.8 % (94.0-97.0); BG PCO2 56.2 mmHg (35.0-45.0); BG PO2 104.5 mmHg (75.0-100.0); BG SAMPLE SITE RIGHT RADIAL; BG TOTAL HEMOGLOBIN 15.3 g/dL (12.0-18.0); BG TOTAL RESPIRATORY RATE 30 b/min; BG VENT MODE VENT - AC
[2021-01-05] MEDS: INSULIN GLARGINE UD 100 UNITS/ML SYR SUBCUT SCH (21:26)
[2021-01-06] VITALS (91 sets, daily range): BP systolic 82–135; BP diastolic 50–82
[2021-01-06] MEDS: SODIUM BICARBONATE 100 MEQ in SODIUM CHLORIDE 0.45% 1,000 ML IV SCH (02:28)
[2021-01-06] MEDS: NOREPINEPHRINE 8 MG in DEXT 5% WATER 242 ML IV PRN (02:29)
[2021-01-06] MEDS: PROPOFOL 10MG/ML 100ML 100 ML IV PRN ×4 (05:51→22:12)
[2021-01-06] MEDS: BLOOD SUGAR DIAGNOSTIC STRIP TEST SCH ×4 (06:27→20:49)
[2021-01-06] MEDS: INSULIN LISPRO 100 UNITS/ML SUBCUT SCH ×4 (06:29→21:08)
[2021-01-06] MEDS: MIDAZOLAM HCL 100 MG in SODIUM CHLORIDE 0.9% 80 ML IV PRN (06:56)
[2021-01-06 07:55] LABS: BG BASE EXCESS 0.3 mmol/L (-2.0-2.0); BG CARBOXYHEMOGLOBIN 0.6 % (0.5-1.5); BG DEOXYHEMOGLOBIN 1.4 % (0.0-5.0); BG HCO3 ACT 25.6 mmol/L (22.0-26.0); BG METHEMOGLOBIN 0.3 % (0.0-1.5); BG OXYGEN SATURATION 98.6 % (92.0-98.5); BG OXYHEMOGLOBIN 97.7 % (94.0-97.0); BG PCO2 43.7 mmHg (35.0-45.0); BG PH 7.385 (7.350-7.450); BG PO2 139.3 mmHg (75.0-100.0); BG SAMPLE SITE RIGHT RADIAL; BG TOTAL HEMOGLOBIN 14.6 g/dL (12.0-18.0); BG VENT MODE VENT - AC
[2021-01-06 07:59] LABS: HEMATOCRIT. 39.9 % (42.0-52.0); HEMOGLOBIN. 13.7 g/dL (14.0-18.0); MEAN CORPUSCULAR HEMOGLOBIN 29.7 pg (28.0-32.0); MEAN CORPUSCULAR VOLUME 86.8 fL (80.0-94.0); MEAN PLATELET VOLUME 9.3 fl (7.4-10.4); PLATELET 179 x1000/uL (130-400); RED CELL DISTRIBUTION WIDTH 13.4 % (11.6-14.6)
[2021-01-06] MEDS: DEXAMETHASONE 10 MG/ML VIAL IV SCH (08:06)
[2021-01-06] MEDS: ENOXAPARIN 40MG/0.4ML SYR SUBCUT SCH (08:06)
[2021-01-06] MEDS: FAMOTIDINE 20MG TABLET PO SCH ×2 (08:06→21:07)
[2021-01-06] MEDS: METOPROLOL TARTRATE 25MG TABLET PO SCH ×2 (08:07→20:47)
[2021-01-06 08:25] LABS: CHLORIDE 105 mEq/L (98-107)
[2021-01-06 10:29] LABS: NUCLEATED RED BLOOD CELLS 1 /100 WBC; PLATELET ESTIMATE NORMAL
[2021-01-06] MEDS: FENTANYL CITRATE/PF 2,500 MCG in SODIUM CHLORIDE 0.9% 200 ML IV PRN (17:10)
[2021-01-06] MEDS: INSULIN GLARGINE UD 100 UNITS/ML SYR SUBCUT SCH (21:08)
[2021-01-07] VITALS (93 sets, daily range): BP systolic 92–143; BP diastolic 48–71
[2021-01-07] MEDS: PROPOFOL 10MG/ML 100ML 100 ML IV PRN ×5 (01:17→18:16)
[2021-01-07] MEDS: MIDAZOLAM HCL 100 MG in SODIUM CHLORIDE 0.9% 80 ML IV PRN ×3 (02:25→21:18)
[2021-01-07] MEDS: BLOOD SUGAR DIAGNOSTIC STRIP TEST SCH ×5 (05:27→17:29)
[2021-01-07] MEDS: INSULIN LISPRO 100 UNITS/ML SUBCUT SCH ×3 (05:28→17:35)
[2021-01-07] MEDS: ACETAMINOPHEN 325MG TABLET PO PRN (06:00)
[2021-01-07] MEDS: FENTANYL CITRATE/PF 2,500 MCG in SODIUM CHLORIDE 0.9% 200 ML IV PRN ×2 (08:47→16:56)
[2021-01-07] MEDS: ENOXAPARIN 40MG/0.4ML SYR SUBCUT SCH (08:48)
[2021-01-07] MEDS: FAMOTIDINE 20MG TABLET PO SCH ×2 (08:48→21:18)
[2021-01-07] MEDS: METOPROLOL TARTRATE 25MG TABLET PO SCH ×2 (08:48→21:00)
[2021-01-07] MEDS: DEXAMETHASONE 10 MG/ML VIAL IV SCH (08:48)
[2021-01-07 08:54] LABS: HEMATOCRIT. 39.2 % (42.0-52.0); HEMOGLOBIN. 13.1 g/dL (14.0-18.0); MEAN CORPUSCULAR HEMOGLOBIN 29.6 pg (28.0-32.0); MEAN CORPUSCULAR VOLUME 88.1 fL (80.0-94.0); MEAN PLATELET VOLUME 9.9 fl (7.4-10.4); PLATELET 183 x1000/uL (130-400); RED BLOOD CELL COUNT 4.44 mill/uL (4.7-6.1); RED CELL DISTRIBUTION WIDTH 13.3 % (11.6-14.6)
[2021-01-07 09:07] LABS: CHLORIDE 105 mEq/L (98-107)
[2021-01-07] MEDS ORDERED: VECURONIUM BROMIDE 10 MG/VIAL IV NR (09:45)
[2021-01-07 09:56] LABS: BG BASE EXCESS 3.4 mmol/L (-2.0-2.0); BG DEOXYHEMOGLOBIN 17.8 % (0.0-5.0); BG FRACTION INSPIRED OXYGEN 100; BG HCO3 ACT 27.7 mmol/L (22.0-26.0); BG METHEMOGLOBIN 0.1 % (0.0-1.5); BG OXYGEN SATURATION 82.2 % (92.0-98.5); BG OXYHEMOGLOBIN 82.1 % (94.0-97.0); BG PCO2 41.3 mmHg (35.0-45.0); BG PH 7.445 (7.350-7.450); BG PO2 41.4 mmHg (75.0-100.0); BG SAMPLE SITE RIGHT RADIAL; BG TOTAL HEMOGLOBIN 13.4 g/dL (12.0-18.0); BG VENT MODE VENT - AC
[2021-01-07] MEDS ORDERED: IPRATROPIUM/ALBUTEROL 0.5-3(2.5)MG/3ML NEB HHN PRN (10:00)
[2021-01-07] MEDS: CEFTRIAXONE 1,000 MG in DEXTROSE 5% WATER 50 ML IV SCH (10:37)
[2021-01-07 10:40] LABS: PLATELET ESTIMATE NORMAL
[2021-01-07] MEDS: AZITHROMYCIN 500 MG in DEXT 5% WATER 250 ML IV SCH (11:54)
[2021-01-07] MEDS ORDERED: INSULIN LISPRO 100 UNITS/ML SUBCUT SCH (12:00)
[2021-01-07] MEDS ORDERED: BLOOD SUGAR DIAGNOSTIC STRIP TEST SCH (12:00)
[2021-01-07] MEDS ORDERED: DEXTROSE 50% WATER 50ML SYRINGE IV PRN (12:00)
[2021-01-07] MEDS: IPRATROPIUM/ALBUTEROL 0.5-3(2.5)MG/3ML NEB HHN SCH (21:15)
[2021-01-07] MEDS: INSULIN GLARGINE UD 100 UNITS/ML SYR SUBCUT SCH (21:19)
[2021-01-08] VITALS (91 sets, daily range): BP systolic 99–181; BP diastolic 54–84
[2021-01-08] MEDS: PROPOFOL 10MG/ML 100ML 100 ML IV PRN ×6 (00:02→20:37)
[2021-01-08] MEDS: BLOOD SUGAR DIAGNOSTIC STRIP TEST SCH ×4 (00:17→17:18)
[2021-01-08] MEDS: INSULIN LISPRO 100 UNITS/ML SUBCUT SCH ×4 (00:32→17:21)
[2021-01-08] MEDS: IPRATROPIUM/ALBUTEROL 0.5-3(2.5)MG/3ML NEB HHN SCH ×6 (00:59→20:05)
[2021-01-08] MEDS: MIDAZOLAM HCL 100 MG in SODIUM CHLORIDE 0.9% 80 ML IV PRN ×4 (04:00→23:47)
[2021-01-08 06:15] LABS: CHLORIDE 105 mEq/L (98-107)
[2021-01-08 06:20] LABS: HEMATOCRIT. 35.8 % (42.0-52.0); HEMOGLOBIN. 12.1 g/dL (14.0-18.0); MEAN CORPUSCULAR HEMOGLOBIN 29.8 pg (28.0-32.0); MEAN CORPUSCULAR VOLUME 88.2 fL (80.0-94.0); MEAN PLATELET VOLUME 9.5 fl (7.4-10.4); PLATELET 159 x1000/uL (130-400); RED BLOOD CELL COUNT 4.06 mill/uL (4.7-6.1); RED CELL DISTRIBUTION WIDTH 13.4 % (11.6-14.6)
[2021-01-08] MEDS: FENTANYL CITRATE/PF 2,500 MCG in SODIUM CHLORIDE 0.9% 200 ML IV PRN ×3 (07:49→23:00)
[2021-01-08 08:01] LABS: BG BASE EXCESS 0.6 mmol/L (-2.0-2.0); BG CARBOXYHEMOGLOBIN 0.3 % (0.5-1.5); BG HCO3 ACT 27.3 mmol/L (22.0-26.0); BG METHEMOGLOBIN 0.3 % (0.0-1.5); BG OXYHEMOGLOBIN 91.4 % (94.0-97.0); BG PCO2 52.3 mmHg (35.0-45.0); BG PH 7.335 (7.350-7.450); BG PO2 62.1 mmHg (75.0-100.0); BG SAMPLE SITE LEFT RADIAL; BG TOTAL HEMOGLOBIN 12.9 g/dL (12.0-18.0); BG VENT MODE VENT - AC
[2021-01-08] MEDS: ENOXAPARIN 40MG/0.4ML SYR SUBCUT SCH (08:17)
[2021-01-08 08:18] LABS: PLATELET ESTIMATE NORMAL
[2021-01-08] MEDS: FAMOTIDINE 20MG TABLET PO SCH ×2 (08:18→22:22)
[2021-01-08] MEDS: DEXAMETHASONE 10 MG/ML VIAL IV SCH (08:18)
[2021-01-08] MEDS: METOPROLOL TARTRATE 25MG TABLET PO SCH ×3 (09:00→22:32)
[2021-01-08] MEDS: CEFTRIAXONE 1,000 MG in DEXTROSE 5% WATER 50 ML IV SCH (09:50)
[2021-01-08] MEDS: AZITHROMYCIN 500 MG in DEXT 5% WATER 250 ML IV SCH (11:02)
[2021-01-08] MEDS: INSULIN GLARGINE UD 100 UNITS/ML SYR SUBCUT SCH (22:22)
[2021-01-09] VITALS (97 sets, daily range): BP systolic 125–189; BP diastolic 35–96
[2021-01-09] MEDS: IPRATROPIUM/ALBUTEROL 0.5-3(2.5)MG/3ML NEB HHN SCH ×6 (00:07→20:00)
[2021-01-09] MEDS: BLOOD SUGAR DIAGNOSTIC STRIP TEST SCH ×4 (00:29→20:17)
[2021-01-09] MEDS: INSULIN LISPRO 100 UNITS/ML SUBCUT SCH ×4 (00:33→20:21)
[2021-01-09] MEDS: PROPOFOL 10MG/ML 100ML 100 ML IV PRN ×2 (01:31→06:31)
[2021-01-09] MEDS: MIDAZOLAM HCL 100 MG in SODIUM CHLORIDE 0.9% 80 ML IV PRN ×3 (06:29→22:00)
[2021-01-09] MEDS: FENTANYL CITRATE/PF 2,500 MCG in SODIUM CHLORIDE 0.9% 200 ML IV PRN ×3 (06:59→22:00)
[2021-01-09 08:40] LABS: BG BASE EXCESS 8.6 mmol/L (-2.0-2.0); BG CARBOXYHEMOGLOBIN 0.1 % (0.5-1.5); BG DEOXYHEMOGLOBIN 3.6 % (0.0-5.0); BG FRACTION INSPIRED OXYGEN 100; BG HCO3 ACT 35.5 mmol/L (22.0-26.0); BG METHEMOGLOBIN 0.3 % (0.0-1.5); BG OXYGEN SATURATION 96.4 % (92.0-98.5); BG PCO2 59.5 mmHg (35.0-45.0); BG PH 7.394 (7.350-7.450); BG SAMPLE SITE LEFT RADIAL; BG TOTAL HEMOGLOBIN 13.3 g/dL (12.0-18.0); BG VENT MODE VENT - AC
[2021-01-09] MEDS: METOPROLOL TARTRATE 25MG TABLET PO SCH ×2 (09:16→21:00)
[2021-01-09] MEDS: FAMOTIDINE 20MG TABLET PO SCH ×2 (09:16→21:47)
[2021-01-09] MEDS: DEXAMETHASONE 10 MG/ML VIAL IV SCH (09:16)
[2021-01-09] MEDS: ENOXAPARIN 40MG/0.4ML SYR SUBCUT SCH (09:17)
[2021-01-09] MEDS: DEXMEDETOMIDINE 400 MCG/100 ML 100 ML IV PRN ×4 (10:08→23:27)
[2021-01-09] MEDS: CEFTRIAXONE 1,000 MG in DEXTROSE 5% WATER 50 ML IV SCH (10:09)
[2021-01-09] MEDS: AZITHROMYCIN 500 MG in DEXT 5% WATER 250 ML IV SCH (10:09)
[2021-01-09] MEDS ORDERED: LACTULOSE 20G/30ML UDC PO NR (10:15)
[2021-01-09] MEDS ORDERED: ENOXAPARIN 30MG/0.3ML SYR SUBCUT NR (10:15)
[2021-01-09] MEDS: CLONIDINE 0.1MG TABLET PO PRN (13:02)
[2021-01-09] MEDS: HYDRALAZINE 20MG/ML VIAL IV PRN (13:57)
[2021-01-09] MEDS ORDERED: INSULIN GLARGINE UD 100 UNITS/ML SYR SUBCUT NR (14:00)
[2021-01-09] MEDS ORDERED: LACTULOSE 20G/30ML UDC PO PRN (21:00)
[2021-01-09] MEDS: ENOXAPARIN 80MG/0.8ML SYR SUBCUT SCH (21:47)
[2021-01-09] MEDS: INSULIN GLARGINE UD 100 UNITS/ML SYR SUBCUT SCH (21:49)
[2021-01-10] VITALS (91 sets, daily range): BP systolic 102–179; BP diastolic 53–102
[2021-01-10] MEDS: IPRATROPIUM/ALBUTEROL 0.5-3(2.5)MG/3ML NEB HHN SCH ×6 (00:18→20:29)
[2021-01-10] MEDS: BLOOD SUGAR DIAGNOSTIC STRIP TEST SCH ×5 (00:34→23:38)
[2021-01-10] MEDS: INSULIN LISPRO 100 UNITS/ML SUBCUT SCH ×5 (00:38→23:41)
[2021-01-10] MEDS: DEXMEDETOMIDINE 400 MCG/100 ML 100 ML IV PRN ×6 (03:05→22:39)
[2021-01-10] MEDS: MIDAZOLAM HCL 100 MG in SODIUM CHLORIDE 0.9% 80 ML IV PRN ×3 (04:29→17:38)
[2021-01-10] MEDS: FENTANYL CITRATE/PF 2,500 MCG in SODIUM CHLORIDE 0.9% 200 ML IV PRN ×3 (05:02→21:25)
[2021-01-10 05:57] LABS: CHLORIDE 113 mEq/L (98-107)
[2021-01-10 05:59] LABS: HEMATOCRIT. 35.8 % (42.0-52.0); HEMOGLOBIN. 11.9 g/dL (14.0-18.0); MEAN CORPUSCULAR HEMOGLOBIN 29.9 pg (28.0-32.0); MEAN CORPUSCULAR VOLUME 89.9 fL (80.0-94.0); MEAN PLATELET VOLUME 9.8 fl (7.4-10.4); PLATELET 166 x1000/uL (130-400); RED BLOOD CELL COUNT 3.99 mill/uL (4.7-6.1); RED CELL DISTRIBUTION WIDTH 13.5 % (11.6-14.6)
[2021-01-10 06:02] LABS: PROTHROMBIN TIME 10.9 sec (9.6-11.0)
[2021-01-10 08:31] LABS: NUCLEATED RED BLOOD CELLS 1 /100 WBC; PLATELET ESTIMATE NORMAL
[2021-01-10] MEDS: METOPROLOL TARTRATE 25MG TABLET PO SCH ×2 (08:49→21:00)
[2021-01-10] MEDS: ENOXAPARIN 80MG/0.8ML SYR SUBCUT SCH ×2 (08:49→21:25)
[2021-01-10] MEDS: DEXAMETHASONE 10 MG/ML VIAL IV SCH (08:49)
[2021-01-10] MEDS: FAMOTIDINE 20MG TABLET PO SCH ×2 (08:49→21:25)
[2021-01-10] MEDS: INSULIN GLARGINE UD 100 UNITS/ML SYR SUBCUT SCH ×2 (09:04→23:41)
[2021-01-10] MEDS: ACETAMINOPHEN 325MG TABLET PO PRN (09:04)
[2021-01-10] MEDS: CEFTRIAXONE 1,000 MG in DEXTROSE 5% WATER 50 ML IV SCH (09:37)
[2021-01-10 09:45] LABS: BG BASE EXCESS 10.4 mmol/L (-2.0-2.0); BG CARBOXYHEMOGLOBIN 0.5 % (0.5-1.5); BG DEOXYHEMOGLOBIN 3.5 % (0.0-5.0); BG FRACTION INSPIRED OXYGEN 100; BG HCO3 ACT 36.2 mmol/L (22.0-26.0); BG METHEMOGLOBIN 0.2 % (0.0-1.5); BG OXYGEN SATURATION 96.5 % (92.0-98.5); BG OXYHEMOGLOBIN 95.8 % (94.0-97.0); BG PCO2 53.6 mmHg (35.0-45.0); BG PH 7.447 (7.350-7.450); BG PO2 83.3 mmHg (75.0-100.0); BG SAMPLE SITE RIGHT RADIAL; BG TOTAL HEMOGLOBIN 12.4 g/dL (12.0-18.0); BG TOTAL RESPIRATORY RATE 38 b/min; BG VENT MODE VENT- PRVC
[2021-01-10] MEDS: AZITHROMYCIN 500 MG in DEXT 5% WATER 250 ML IV SCH (10:46)
[2021-01-10] MEDS ORDERED: BISACODYL 10MG SUPP PR PRN (11:00)
[2021-01-10 17:30] LABS: CLARITY URINE TURBID (CLEAR); COLOR URINE ORANGE (YELLOW); KETONES URINE TRACE (NEGATIVE); LEUKOCYTE ESTERASE URINE TRACE (NEGATIVE); NITRITE URINE NEGATIVE (NEGATIVE); OCCULT BLOOD URINE 3+ (NEGATIVE); PH URINE 5.5 (4.5-8.0); PROTEIN URINE 1+ (NEGATIVE); SPECIFIC GRAVITY URINE 1.032 (1.005-1.030)
[2021-01-10] MEDS ORDERED: FLUCONAZOLE 200 MG/100ML BAG 100 ML IV SCH (18:45)
[2021-01-10] MEDS ORDERED: DOPAMINE 400MG/250ML PREMIX 250 ML IV PRN (19:15)
[2021-01-10 20:07] LABS: BG BASE EXCESS 9.8 mmol/L (-2.0-2.0); BG CARBOXYHEMOGLOBIN 0.4 % (0.5-1.5); BG DEOXYHEMOGLOBIN 4.2 % (0.0-5.0); BG FRACTION INSPIRED OXYGEN 100; BG HCO3 ACT 37.8 mmol/L (22.0-26.0); BG METHEMOGLOBIN 0.2 % (0.0-1.5); BG OXYGEN SATURATION 95.8 % (92.0-98.5); BG OXYHEMOGLOBIN 95.2 % (94.0-97.0); BG PCO2 67.9 mmHg (35.0-45.0); BG PH 7.364 (7.350-7.450); BG PO2 85.5 mmHg (75.0-100.0); BG TOTAL HEMOGLOBIN 13.3 g/dL (12.0-18.0); BG TOTAL RESPIRATORY RATE 37 b/min; BG VENT MODE VENT - PRVC
[2021-01-10] MEDS: FLUCONAZOLE 100MG/50ML in BAG IV SCH (22:15)
[2021-01-11] VITALS (87 sets, daily range): BP systolic 78–166; BP diastolic 54–111
[2021-01-11] MEDS: MIDAZOLAM HCL 100 MG in SODIUM CHLORIDE 0.9% 80 ML IV PRN ×3 (00:43→16:02)
[2021-01-11] MEDS: IPRATROPIUM/ALBUTEROL 0.5-3(2.5)MG/3ML NEB HHN SCH ×6 (01:00→21:00)
[2021-01-11 03:39] LABS: BG BASE EXCESS 9.8 mmol/L (-2.0-2.0); BG CARBOXYHEMOGLOBIN 0.9 % (0.5-1.5); BG DEOXYHEMOGLOBIN 27.2 % (0.0-5.0); BG FRACTION INSPIRED OXYGEN 100; BG HCO3 ACT 37.9 mmol/L (22.0-26.0); BG METHEMOGLOBIN 0.2 % (0.0-1.5); BG OXYGEN SATURATION 72.5 % (92.0-98.5); BG OXYHEMOGLOBIN 71.7 % (94.0-97.0); BG PCO2 69.1 mmHg (35.0-45.0); BG PH 7.357 (7.350-7.450); BG PO2 38.7 mmHg (75.0-100.0); BG SAMPLE SITE RIGHT RADIAL; BG VENT MODE PRVC
[2021-01-11] MEDS: PROPOFOL 10MG/ML 100ML 100 ML IV PRN ×4 (04:06→21:49)
[2021-01-11] MEDS: FENTANYL CITRATE/PF 2,500 MCG in SODIUM CHLORIDE 0.9% 200 ML IV PRN ×3 (05:10→21:56)
[2021-01-11] MEDS: BLOOD SUGAR DIAGNOSTIC STRIP TEST SCH ×4 (06:00→23:23)
[2021-01-11] MEDS: INSULIN LISPRO 100 UNITS/ML SUBCUT SCH ×4 (06:16→23:24)
[2021-01-11] MEDS: NOREPINEPHRINE 8 MG in DEXT 5% WATER 242 ML IV PRN (06:25)
[2021-01-11] MEDS ORDERED: VECURONIUM BROMIDE 10 MG/VIAL IV NR (08:15)
[2021-01-11 09:37] LABS: BG BASE EXCESS 13.3 mmol/L (-2.0-2.0); BG CARBOXYHEMOGLOBIN 0.7 % (0.5-1.5); BG FRACTION INSPIRED OXYGEN 100; BG HCO3 ACT 40.5 mmol/L (22.0-26.0); BG METHEMOGLOBIN 0.1 % (0.0-1.5); BG OXYHEMOGLOBIN 93.2 % (94.0-97.0); BG PCO2 64.6 mmHg (35.0-45.0); BG PH 7.415 (7.350-7.450); BG SAMPLE SITE RIGHT RADIAL; BG TOTAL HEMOGLOBIN 12.4 g/dL (12.0-18.0); BG TOTAL RESPIRATORY RATE 38 b/min; BG VENT MODE VENT- PRVC
[2021-01-11] MEDS: DEXAMETHASONE 10 MG/ML VIAL IV SCH (09:57)
[2021-01-11] MEDS: FAMOTIDINE 20MG TABLET PO SCH ×2 (09:57→21:11)
[2021-01-11] MEDS: METOPROLOL TARTRATE 25MG TABLET PO SCH ×2 (09:58→21:11)
[2021-01-11] MEDS: ENOXAPARIN 80MG/0.8ML SYR SUBCUT SCH ×2 (09:58→21:12)
[2021-01-11] MEDS: INSULIN GLARGINE UD 100 UNITS/ML SYR SUBCUT SCH ×2 (10:00→22:03)
[2021-01-11 10:05] LABS: HEMATOCRIT. 38.8 % (42.0-52.0); HEMOGLOBIN. 12.3 g/dL (14.0-18.0); MEAN CORPUSCULAR HEMOGLOBIN 29.7 pg (28.0-32.0); MEAN CORPUSCULAR VOLUME 93.7 fL (80.0-94.0); MEAN PLATELET VOLUME 9.2 fl (7.4-10.4); PLATELET 221 x1000/uL (130-400); RED BLOOD CELL COUNT 4.14 mill/uL (4.7-6.1); RED CELL DISTRIBUTION WIDTH 14.4 % (11.6-14.6)
[2021-01-11] MEDS: CEFEPIME 2,000 MG in DEXT 5% WATER 100 ML IV SCH ×2 (10:06→22:31)
[2021-01-11] MEDS: AZITHROMYCIN 500 MG in DEXT 5% WATER 250 ML IV SCH (10:07)
[2021-01-11 10:31] LABS: CHLORIDE 110 mEq/L (98-107)
[2021-01-11 12:37] LABS: PLATELET ESTIMATE NORMAL
[2021-01-11] MEDS ORDERED: SODIUM CHLORIDE 0.9% 500 ML IV SCH (15:30)
[2021-01-11] MEDS ORDERED: DILTIAZEM HCL 5MG/ML 5ML VIAL IV SCH (18:15)
[2021-01-11] MEDS: ACETAMINOPHEN 325MG TABLET PO PRN (18:18)
[2021-01-11] MEDS: FLUCONAZOLE 100MG/50ML in BAG IV SCH (20:19)
[2021-01-12] VITALS (96 sets, daily range): BP systolic 93–144; BP diastolic 47–95
[2021-01-12] MEDS: MIDAZOLAM HCL 100 MG in SODIUM CHLORIDE 0.9% 80 ML IV PRN ×4 (00:11→21:04)
[2021-01-12] MEDS: PROPOFOL 10MG/ML 100ML 100 ML IV PRN ×3 (04:18→16:20)
[2021-01-12] MEDS: ACETAMINOPHEN 325MG TABLET PO PRN ×4 (04:43→23:34)
[2021-01-12] MEDS ORDERED: ACETAMINOPHEN 650MG SUPP PR PRN (05:15)
[2021-01-12] MEDS: BLOOD SUGAR DIAGNOSTIC STRIP TEST SCH ×4 (05:55→23:33)
[2021-01-12 05:59] LABS: HEMATOCRIT. 34.5 % (42.0-52.0); HEMOGLOBIN. 11.4 g/dL (14.0-18.0); MEAN CORPUSCULAR HEMOGLOBIN 30.2 pg (28.0-32.0); MEAN CORPUSCULAR VOLUME 91.2 fL (80.0-94.0); MEAN PLATELET VOLUME 9.7 fl (7.4-10.4); PLATELET 240 x1000/uL (130-400); RED BLOOD CELL COUNT 3.79 mill/uL (4.7-6.1); RED CELL DISTRIBUTION WIDTH 14.1 % (11.6-14.6)
[2021-01-12] MEDS: FENTANYL CITRATE/PF 2,500 MCG in SODIUM CHLORIDE 0.9% 200 ML IV PRN ×3 (06:03→22:29)
[2021-01-12 06:11] LABS: CHLORIDE 106 mEq/L (98-107)
[2021-01-12] MEDS: INSULIN LISPRO 100 UNITS/ML SUBCUT SCH ×4 (06:23→23:36)
[2021-01-12] MEDS: IPRATROPIUM/ALBUTEROL 0.5-3(2.5)MG/3ML NEB HHN SCH ×5 (08:05→19:47)
[2021-01-12] MEDS: FAMOTIDINE 20MG TABLET PO SCH ×2 (08:56→20:36)
[2021-01-12] MEDS: ENOXAPARIN 80MG/0.8ML SYR SUBCUT SCH (08:57)
[2021-01-12] MEDS: METOPROLOL TARTRATE 25MG TABLET PO SCH ×2 (08:57→21:00)
[2021-01-12] MEDS: DEXAMETHASONE 10 MG/ML VIAL IV SCH (08:57)
[2021-01-12 09:58] LABS: BG BASE EXCESS 9.9 mmol/L (-2.0-2.0); BG CARBOXYHEMOGLOBIN 1.2 % (0.5-1.5); BG DEOXYHEMOGLOBIN 21.2 % (0.0-5.0); BG FRACTION INSPIRED OXYGEN 100; BG HCO3 ACT 37.4 mmol/L (22.0-26.0); BG METHEMOGLOBIN 0.2 % (0.0-1.5); BG OXYGEN SATURATION 78.5 % (92.0-98.5); BG OXYHEMOGLOBIN 77.4 % (94.0-97.0); BG PCO2 66.1 mmHg (35.0-45.0); BG PH 7.371 (7.350-7.450); BG PO2 43.5 mmHg (75.0-100.0); BG SAMPLE SITE RIGHT RADIAL; BG VENT MODE VENT - PRVC
[2021-01-12] MEDS: AZITHROMYCIN 500 MG in DEXT 5% WATER 250 ML IV SCH (10:59)
[2021-01-12] MEDS: INSULIN GLARGINE UD 100 UNITS/ML SYR SUBCUT SCH ×2 (10:59→22:06)
[2021-01-12] MEDS: CEFEPIME 2,000 MG in DEXT 5% WATER 100 ML IV SCH ×2 (10:59→22:33)
[2021-01-12 13:46] LABS: PLATELET ESTIMATE NORMAL
[2021-01-12] MEDS: FLUCONAZOLE 100MG/50ML in BAG IV SCH (20:26)
[2021-01-13] VITALS (97 sets, daily range): BP systolic 108–175; BP diastolic 67–97
[2021-01-13] MEDS: IPRATROPIUM/ALBUTEROL 0.5-3(2.5)MG/3ML NEB HHN SCH ×6 (00:01→19:43)
[2021-01-13] MEDS: PROPOFOL 10MG/ML 100ML 100 ML IV PRN ×2 (00:42→08:09)
[2021-01-13] MEDS: MIDAZOLAM HCL 100 MG in SODIUM CHLORIDE 0.9% 80 ML IV PRN ×3 (04:08→18:51)
[2021-01-13] MEDS: FENTANYL CITRATE/PF 2,500 MCG in SODIUM CHLORIDE 0.9% 200 ML IV PRN ×3 (06:20→21:04)
[2021-01-13] MEDS: BLOOD SUGAR DIAGNOSTIC STRIP TEST SCH ×3 (06:27→18:50)
[2021-01-13] MEDS: INSULIN LISPRO 100 UNITS/ML SUBCUT SCH ×3 (06:29→18:51)
[2021-01-13] MEDS: ENOXAPARIN 40MG/0.4ML SYR SUBCUT SCH (08:23)
[2021-01-13] MEDS: DEXAMETHASONE 10 MG/ML VIAL IV SCH (08:23)
[2021-01-13] MEDS: METOPROLOL TARTRATE 25MG TABLET PO SCH (08:37)
[2021-01-13] MEDS: FAMOTIDINE 20MG TABLET PO SCH ×2 (08:37→21:23)
[2021-01-13 08:59] LABS: BG BASE EXCESS 11.6 mmol/L (-2.0-2.0); BG CARBOXYHEMOGLOBIN 0.3 % (0.5-1.5); BG DEOXYHEMOGLOBIN 9.6 % (0.0-5.0); BG FRACTION INSPIRED OXYGEN 100; BG HCO3 ACT 39.3 mmol/L (22.0-26.0); BG METHEMOGLOBIN 1.2 % (0.0-1.5); BG OXYGEN SATURATION 90.3 % (92.0-98.5); BG OXYHEMOGLOBIN 88.9 % (94.0-97.0); BG PCO2 68.8 mmHg (35.0-45.0); BG PH 7.375 (7.350-7.450); BG PO2 59.8 mmHg (75.0-100.0); BG SAMPLE SITE RIGHT RADIAL; BG TOTAL HEMOGLOBIN 11.8 g/dL (12.0-18.0); BG VENT MODE PRVC
[2021-01-13] MEDS: CEFEPIME 2,000 MG in DEXT 5% WATER 100 ML IV SCH ×2 (10:34→22:23)
[2021-01-13] MEDS: INSULIN GLARGINE UD 100 UNITS/ML SYR SUBCUT SCH ×2 (10:37→22:24)
[2021-01-13] MEDS: MORPHINE SULFATE 2 MG/ML CPJ (NOT FOR IM USE) IV PRN ×2 (14:30→20:52)
[2021-01-13] MEDS ORDERED: NALOXONE HCL 0.4MG/ML VIAL IV PRN (14:30)
[2021-01-13] MEDS: HYDRALAZINE 20MG/ML VIAL IV PRN ×2 (14:30→22:23)
[2021-01-13] MEDS: CLONIDINE 0.1MG TABLET PO PRN ×2 (15:06→22:23)
[2021-01-13] MEDS: KCL 20MEQ/100ML PREMIX 100 ML IV NR ×2 (15:07→15:48)
[2021-01-13] MEDS ORDERED: METOPROLOL TARTRATE 50MG TABLET PO NR (17:15)
[2021-01-13] MEDS ORDERED: ACETAMINOPHEN 325MG TABLET NG PRN (20:45)
[2021-01-13] MEDS: METOPROLOL TARTRATE 50MG TABLET PO SCH (21:23)
[2021-01-14] VITALS (93 sets, daily range): BP systolic 133–184; BP diastolic 70–106
[2021-01-14] MEDS: IPRATROPIUM/ALBUTEROL 0.5-3(2.5)MG/3ML NEB HHN SCH ×3 (00:02→08:42)
[2021-01-14] MEDS: BLOOD SUGAR DIAGNOSTIC STRIP TEST SCH ×5 (00:34→17:12)
[2021-01-14] MEDS: INSULIN LISPRO 100 UNITS/ML SUBCUT SCH ×5 (00:41→22:02)
[2021-01-14] MEDS: MORPHINE SULFATE 2 MG/ML CPJ (NOT FOR IM USE) IV PRN ×4 (00:59→17:23)
[2021-01-14] MEDS: MIDAZOLAM HCL 100 MG in SODIUM CHLORIDE 0.9% 80 ML IV PRN ×3 (02:28→17:35)
[2021-01-14] MEDS: FENTANYL CITRATE/PF 2,500 MCG in SODIUM CHLORIDE 0.9% 200 ML IV PRN ×3 (05:38→21:33)
[2021-01-14] MEDS: HYDRALAZINE 20MG/ML VIAL IV PRN ×3 (06:13→18:32)
[2021-01-14] MEDS: DEXAMETHASONE 10 MG/ML VIAL IV SCH (08:17)
[2021-01-14] MEDS: ENOXAPARIN 40MG/0.4ML SYR SUBCUT SCH (08:18)
[2021-01-14] MEDS: FAMOTIDINE 20MG TABLET PO SCH ×2 (08:18→20:26)
[2021-01-14] MEDS: METOPROLOL TARTRATE 50MG TABLET PO SCH ×2 (08:18→20:26)
[2021-01-14 09:10] LABS: BG BASE EXCESS 11.6 mmol/L (-2.0-2.0); BG CARBOXYHEMOGLOBIN 0.1 % (0.5-1.5); BG DEOXYHEMOGLOBIN 5.4 % (0.0-5.0); BG FRACTION INSPIRED OXYGEN 100; BG HCO3 ACT 40.8 mmol/L (22.0-26.0); BG METHEMOGLOBIN 0.3 % (0.0-1.5); BG OXYGEN SATURATION 94.6 % (92.0-98.5); BG OXYHEMOGLOBIN 94.2 % (94.0-97.0); BG PCO2 81.1 mmHg (35.0-45.0); BG PH 7.319 (7.350-7.450); BG PO2 79.4 mmHg (75.0-100.0); BG SAMPLE SITE RIGHT RADIAL; BG TOTAL HEMOGLOBIN 12.1 g/dL (12.0-18.0); BG VENT MODE VENT - PRVC
[2021-01-14] MEDS: INSULIN GLARGINE UD 100 UNITS/ML SYR SUBCUT SCH ×2 (09:38→22:01)
[2021-01-14] MEDS: CLONIDINE 0.1MG TABLET PO PRN (09:59)
[2021-01-14] MEDS: CEFEPIME 2,000 MG in DEXT 5% WATER 100 ML IV SCH ×2 (10:01→22:00)
[2021-01-14] MEDS: IPRATROPIUM BROMIDE (0.02%) 0.5MG/2.5ML NEB HHN SCH ×3 (11:44→20:22)
[2021-01-14 16:48] LABS: HEMATOCRIT. 35.3 % (42.0-52.0); HEMOGLOBIN. 11.3 g/dL (14.0-18.0); MEAN CORPUSCULAR HEMOGLOBIN 29.7 pg (28.0-32.0); MEAN PLATELET VOLUME 9.7 fl (7.4-10.4); PLATELET 282 x1000/uL (130-400); RED BLOOD CELL COUNT 3.79 mill/uL (4.7-6.1); RED CELL DISTRIBUTION WIDTH 14.3 % (11.6-14.6)
[2021-01-14 16:51] LABS: CHLORIDE 102 mEq/L (98-107)
[2021-01-14 17:19] LABS: PLATELET ESTIMATE NORMAL
[2021-01-14] MEDS: ACETAMINOPHEN 650MG/20.3ML UDC NG PRN (20:25)
[2021-01-15] VITALS (96 sets, daily range): BP systolic 121–157; BP diastolic 60–97
[2021-01-15] MEDS: MORPHINE SULFATE 2 MG/ML CPJ (NOT FOR IM USE) IV PRN ×2 (00:31→13:45)
[2021-01-15] MEDS: MIDAZOLAM HCL 100 MG in SODIUM CHLORIDE 0.9% 80 ML IV PRN ×4 (00:35→21:21)
[2021-01-15] MEDS: IPRATROPIUM BROMIDE (0.02%) 0.5MG/2.5ML NEB HHN SCH ×6 (01:52→20:26)
[2021-01-15] MEDS: ACETAMINOPHEN 650MG/20.3ML UDC NG PRN ×2 (02:49→15:23)
[2021-01-15] MEDS: HYDRALAZINE 20MG/ML VIAL IV PRN ×2 (03:57→15:23)
[2021-01-15] MEDS: FENTANYL CITRATE/PF 2,500 MCG in SODIUM CHLORIDE 0.9% 200 ML IV PRN ×3 (04:21→21:21)
[2021-01-15] MEDS: INSULIN LISPRO 100 UNITS/ML SUBCUT SCH ×3 (05:11→18:18)
[2021-01-15] MEDS: BLOOD SUGAR DIAGNOSTIC STRIP TEST SCH ×3 (05:11→18:14)
[2021-01-15 05:52] LABS: HEMATOCRIT. 31.1 % (42.0-52.0); HEMOGLOBIN. 10.2 g/dL (14.0-18.0); MEAN CORPUSCULAR HEMOGLOBIN 30.1 pg (28.0-32.0); MEAN PLATELET VOLUME 9.4 fl (7.4-10.4); PLATELET 238 x1000/uL (130-400); RED BLOOD CELL COUNT 3.38 mill/uL (4.7-6.1); RED CELL DISTRIBUTION WIDTH 13.5 % (11.6-14.6)
[2021-01-15 05:54] LABS: CHLORIDE 104 mEq/L (98-107)
[2021-01-15 08:29] LABS: BG BASE EXCESS 16.1 mmol/L (-2.0-2.0); BG CARBOXYHEMOGLOBIN 0.6 % (0.5-1.5); BG DEOXYHEMOGLOBIN 5.8 % (0.0-5.0); BG HCO3 ACT 43.8 mmol/L (22.0-26.0); BG METHEMOGLOBIN 0.3 % (0.0-1.5); BG OXYGEN SATURATION 94.1 % (92.0-98.5); BG OXYHEMOGLOBIN 93.3 % (94.0-97.0); BG PCO2 71.8 mmHg (35.0-45.0); BG PH 7.403 (7.350-7.450); BG PO2 70.7 mmHg (75.0-100.0); BG SAMPLE SITE RIGHT RADIAL; BG VENT MODE VENT- PRVC
[2021-01-15] MEDS: ENOXAPARIN 40MG/0.4ML SYR SUBCUT SCH (08:52)
[2021-01-15] MEDS: METOPROLOL TARTRATE 50MG TABLET PO SCH ×2 (08:53→21:19)
[2021-01-15] MEDS: DEXAMETHASONE 10 MG/ML VIAL IV SCH (08:53)
[2021-01-15] MEDS: FAMOTIDINE 20MG TABLET PO SCH ×2 (08:53→21:19)
[2021-01-15] MEDS: CLONIDINE 0.1MG TABLET PO PRN ×2 (08:54→16:41)
[2021-01-15] MEDS: INSULIN GLARGINE UD 100 UNITS/ML SYR SUBCUT SCH ×2 (10:30→21:20)
[2021-01-15] MEDS: CEFEPIME 2,000 MG in DEXT 5% WATER 100 ML IV SCH (10:30)
[2021-01-15 10:44] LABS: PLATELET ESTIMATE NORMAL
[2021-01-16] VITALS (94 sets, daily range): BP systolic 109–155; BP diastolic 65–97
[2021-01-16] MEDS: CEFEPIME 2,000 MG in DEXT 5% WATER 100 ML IV SCH (00:18)
[2021-01-16] MEDS: IPRATROPIUM BROMIDE (0.02%) 0.5MG/2.5ML NEB HHN SCH ×6 (00:19→20:44)
[2021-01-16] MEDS: INSULIN LISPRO 100 UNITS/ML SUBCUT SCH ×4 (00:19→18:09)
[2021-01-16] MEDS: BLOOD SUGAR DIAGNOSTIC STRIP TEST SCH ×4 (00:20→18:04)
[2021-01-16] MEDS: FENTANYL CITRATE/PF 2,500 MCG in SODIUM CHLORIDE 0.9% 200 ML IV PRN ×3 (03:56→20:11)
[2021-01-16] MEDS: MIDAZOLAM HCL 100 MG in SODIUM CHLORIDE 0.9% 80 ML IV PRN ×3 (03:57→20:12)
[2021-01-16] MEDS: DEXAMETHASONE 10 MG/ML VIAL IV SCH (08:11)
[2021-01-16] MEDS: ENOXAPARIN 40MG/0.4ML SYR SUBCUT SCH (08:11)
[2021-01-16] MEDS: FAMOTIDINE 20MG TABLET PO SCH ×2 (08:11→20:09)
[2021-01-16] MEDS: METOPROLOL TARTRATE 50MG TABLET PO SCH ×2 (08:13→20:09)
[2021-01-16 10:13] LABS: HEMATOCRIT. 35.6 % (42.0-52.0); MEAN CORPUSCULAR HEMOGLOBIN 29.5 pg (28.0-32.0); MEAN CORPUSCULAR VOLUME 95.1 fL (80.0-94.0); PLATELET 285 x1000/uL (130-400); RED BLOOD CELL COUNT 3.75 mill/uL (4.7-6.1); RED CELL DISTRIBUTION WIDTH 14.2 % (11.6-14.6)
[2021-01-16 10:25] LABS: CHLORIDE 105 mEq/L (98-107)
[2021-01-16 10:30] LABS: BG BASE EXCESS 15.2 mmol/L (-2.0-2.0); BG CARBOXYHEMOGLOBIN 1.3 % (0.5-1.5); BG DEOXYHEMOGLOBIN 10.9 % (0.0-5.0); BG FRACTION INSPIRED OXYGEN 100; BG HCO3 ACT 44.2 mmol/L (22.0-26.0); BG METHEMOGLOBIN 0.4 % (0.0-1.5); BG OXYGEN SATURATION 88.9 % (92.0-98.5); BG OXYHEMOGLOBIN 87.4 % (94.0-97.0); BG PCO2 80.4 mmHg (35.0-45.0); BG PH 7.358 (7.350-7.450); BG PO2 58.7 mmHg (75.0-100.0); BG SAMPLE SITE RIGHT RADIAL; BG TOTAL HEMOGLOBIN 12.2 g/dL (12.0-18.0); BG VENT MODE VENT - PRVC
[2021-01-16] MEDS ORDERED: SODIUM POLYSTYRENE SULFONATE 15 G/60 ML BOT NG NR (12:00)
[2021-01-16] MEDS: INSULIN GLARGINE UD 100 UNITS/ML SYR SUBCUT SCH ×2 (12:09→22:03)
[2021-01-16 12:49] LABS: PLATELET ESTIMATE NORMAL
[2021-01-16] MEDS: ACETAMINOPHEN 650MG/20.3ML UDC NG PRN (13:12)
[2021-01-16] MEDS ORDERED: CALCIUM CHLORIDE 1GM/10ML SYR IV ONE (15:15)
[2021-01-16] MEDS ORDERED: SODIUM BICARBONATE 8.4% 1 MEQ/ML 50ML SYR IV NR (16:00)
[2021-01-16] MEDS ORDERED: DEXTROSE 50% WATER 50ML SYRINGE IV NR (16:00)
[2021-01-16] MEDS ORDERED: INSULIN REGULAR (HUMULIN R) 300UNITS/3ML VIAL IV NR (16:00)
[2021-01-16] MEDS ORDERED: CALCIUM CHLORIDE 1000 MG in DEXTROSE 5% WATER 100 ML IV NR (16:30)
[2021-01-17] VITALS (107 sets, daily range): BP systolic 48–195; BP diastolic 23–110
[2021-01-17] MEDS: INSULIN LISPRO 100 UNITS/ML SUBCUT SCH ×4 (01:23→19:45)
[2021-01-17] MEDS: MIDAZOLAM HCL 100 MG in SODIUM CHLORIDE 0.9% 80 ML IV PRN ×2 (02:50→10:20)
[2021-01-17] MEDS: IPRATROPIUM BROMIDE (0.02%) 0.5MG/2.5ML NEB HHN SCH ×5 (04:15→21:11)
[2021-01-17 06:12] LABS: CHLORIDE 117 mEq/L (98-107)
[2021-01-17 06:20] LABS: HEMOGLOBIN. 11.1 g/dL (14.0-18.0); MEAN CORPUSCULAR HEMOGLOBIN 29.6 pg (28.0-32.0); MEAN CORPUSCULAR VOLUME 93.5 fL (80.0-94.0); MEAN PLATELET VOLUME 10.3 fl (7.4-10.4); PLATELET 316 x1000/uL (130-400); RED BLOOD CELL COUNT 3.74 mill/uL (4.7-6.1); RED CELL DISTRIBUTION WIDTH 14.1 % (11.6-14.6)
[2021-01-17] MEDS: FENTANYL CITRATE/PF 2,500 MCG in SODIUM CHLORIDE 0.9% 200 ML IV PRN (06:31)
[2021-01-17] MEDS: BLOOD SUGAR DIAGNOSTIC STRIP TEST SCH ×4 (06:50→18:00)
[2021-01-17 08:26] LABS: BG BASE EXCESS 21.7 mmol/L (-2.0-2.0); BG DEOXYHEMOGLOBIN 14.1 % (0.0-5.0); BG HCO3 ACT 48.7 mmol/L (22.0-26.0); BG METHEMOGLOBIN 0.1 % (0.0-1.5); BG OXYGEN SATURATION 85.7 % (92.0-98.5); BG OXYHEMOGLOBIN 84.8 % (94.0-97.0); BG PCO2 67.7 mmHg (35.0-45.0); BG PH 7.475 (7.350-7.450); BG PO2 50.6 mmHg (75.0-100.0); BG SAMPLE SITE LEFT RADIAL; BG VENT MODE VENT- PRVC
[2021-01-17] MEDS: FAMOTIDINE 20MG TABLET PO SCH ×2 (09:14→21:10)
[2021-01-17] MEDS: DEXAMETHASONE 10 MG/ML VIAL IV SCH (09:14)
[2021-01-17] MEDS: METOPROLOL TARTRATE 50MG TABLET PO SCH ×2 (09:14→21:10)
[2021-01-17] MEDS: ENOXAPARIN 40MG/0.4ML SYR SUBCUT SCH (09:15)
[2021-01-17] MEDS: DEXTROSE 5% WATER 1,000 ML IV SCH ×2 (09:17→21:10)
[2021-01-17 10:06] LABS: NUCLEATED RED BLOOD CELLS 3 /100 WBC; PLATELET ESTIMATE NORMAL
[2021-01-17] MEDS: INSULIN GLARGINE UD 100 UNITS/ML SYR SUBCUT SCH ×2 (13:46→21:08)
[2021-01-17] MEDS: DESMOPRESSIN ACETATE IVPB 2 MCG in SODIUM CHLORIDE 0.9% 50 ML IV SCH ×2 (13:47→21:10)
[2021-01-17 16:47] LABS: CHLORIDE 120 mEq/L (98-107)
[2021-01-17] MEDS ORDERED: VASOPRESSIN 20 UNIT in SODIUM CHLORIDE 0.9% 99 ML IV PRN (18:30)
[2021-01-17] MEDS ORDERED: DOPAMINE 400MG/250ML PREMIX 250 ML IV PRN (18:30)
[2021-01-17] MEDS: NOREPINEPHRINE 8 MG in DEXT 5% WATER 242 ML IV PRN (18:45)
[2021-01-18] VITALS (89 sets, daily range): BP systolic 54–147; BP diastolic 27–94
[2021-01-18] MEDS: BLOOD SUGAR DIAGNOSTIC STRIP TEST SCH ×4 (00:27→18:42)
[2021-01-18] MEDS: INSULIN LISPRO 100 UNITS/ML SUBCUT SCH ×4 (00:27→19:09)
[2021-01-18] MEDS: IPRATROPIUM BROMIDE (0.02%) 0.5MG/2.5ML NEB HHN SCH ×6 (01:03→20:17)
[2021-01-18 05:30] LABS: CHLORIDE 113 mEq/L (98-107); HEMATOCRIT. 31.1 % (42.0-52.0); HEMOGLOBIN. 9.7 g/dL (14.0-18.0); MEAN CORPUSCULAR HEMOGLOBIN 30.3 pg (28.0-32.0); MEAN CORPUSCULAR VOLUME 97.3 fL (80.0-94.0); MEAN PLATELET VOLUME 10.8 fl (7.4-10.4); PLATELET 290 x1000/uL (130-400)
[2021-01-18 05:56] LABS: PROTHROMBIN TIME 10.9 sec (9.6-11.0)
[2021-01-18] MEDS: NOREPINEPHRINE 8 MG in DEXT 5% WATER 242 ML IV PRN (07:23)
[2021-01-18] MEDS ORDERED: SODIUM CHLORIDE 0.9% 1,000 ML IV ONE (07:30)
[2021-01-18] MEDS: PHENYLEPHRINE 100 MG in DEXT 5% WATER 240 ML IV PRN ×2 (07:54→20:06)
[2021-01-18] MEDS ORDERED: EPINEPHRINE 0.1MG/ML (1:10,000) 10ML SYR ONE (08:37)
[2021-01-18] MEDS ORDERED: AMIODARONE HCL 50MG/ML 3ML VIAL IV ONE (08:37)
[2021-01-18] MEDS ORDERED: SODIUM BICARBONATE 8.4% 1 MEQ/ML 50ML SYR IV ONE (08:37)
[2021-01-18] MEDS ORDERED: ADENOSINE 3 MG/ML 2ML VIAL IV ONE (08:37)
[2021-01-18 08:50] LABS: BG BASE EXCESS 5.9 mmol/L (-2.0-2.0); BG FRACTION INSPIRED OXYGEN 100; BG HCO3 ACT 37.5 mmol/L (22.0-26.0); BG PCO2 93.5 mmHg (35.0-45.0); BG PH 7.221 (7.350-7.450); BG PO2 < 30.3 mmHg (75.0-100.0); BG SAMPLE SITE RIGHT RADIAL; BG VENT MODE PRVC
[2021-01-18] MEDS: FAMOTIDINE 20MG TABLET PO SCH ×2 (09:00→21:48)
[2021-01-18] MEDS: METOPROLOL TARTRATE 50MG TABLET PO SCH ×2 (09:00→21:00)
[2021-01-18] MEDS: NOREPINEPHRINE 32 MG in DEXT 5% WATER 218 ML IV PRN ×2 (09:47→17:26)
[2021-01-18] MEDS: INSULIN GLARGINE UD 100 UNITS/ML SYR SUBCUT SCH ×2 (10:00→21:49)
[2021-01-18 10:11] LABS: NUCLEATED RED BLOOD CELLS 2 /100 WBC; PLATELET ESTIMATE NORMAL
[2021-01-18] MEDS: DEXAMETHASONE 10 MG/ML VIAL IV SCH (11:59)
[2021-01-18] MEDS: SODIUM CHLORIDE 0.45% 1,000 ML IV SCH ×2 (11:59→17:27)
[2021-01-18] MEDS: DEXTROSE 5% WATER 1,000 ML IV SCH ×2 (15:41→17:28)
[2021-01-18] MEDS ORDERED: DESMOPRESSIN ACETATE 4MCG/ML AMP IV SCH (21:00)
[2021-01-19] VITALS: BP 62/37
[2021-01-19 00:15] VITALS: BP 89/56
[2021-01-19] MEDS: IPRATROPIUM BROMIDE (0.02%) 0.5MG/2.5ML NEB HHN SCH (00:30)
== END 2021-01-19 00:52 | DRG 720 ==
LOC: ER 07:55 → MICUSO 11:37 → 7WST 01-03 15:23 → MICUSO 01-05 08:55 → MICUNO 01-11 05:00
PROVIDERS: ADMIT Hospitalist; ATTEND Hospitalist
PROC: 0BH17EZ Insertion of Endotracheal Airway into Trachea, Via Natural or Artificial Opening (ICD-10-PCS; principal; 2021-01-05)
PROC: 5A1955Z Respiratory Ventilation, Greater than 96 Consecutive Hours (ICD-10-PCS; 2021-01-05)
PROC: 05HY33Z Insertion of Infusion Device into Upper Vein, Percutaneous Approach (ICD-10-PCS; 2021-01-05)
PROC: B54NZZA Ultrasonography of Left Upper Extremity Veins, Guidance (ICD-10-PCS; 2021-01-05)
PROC: 5A09357 Assistance with Respiratory Ventilation, Less than 24 Consecutive Hours, Continuous Positive Airway Pressure (ICD-10-PCS; 2021-01-05)
PROC: 0W9930Z Drainage of Right Pleural Cavity with Drainage Device, Percutaneous Approach (ICD-10-PCS; 2021-01-17)
PROC: 5A12012 Performance of Cardiac Output, Single, Manual (ICD-10-PCS; 2021-01-18)
PROC: 5A2204Z Restoration of Cardiac Rhythm, Single (ICD-10-PCS; 2021-01-18)
DX: A41.89 Other specified sepsis (principal); J12.82 Pneumonia due to coronavirus disease 2019; J80 Acute respiratory distress syndrome; R65.21 Severe sepsis with septic shock; U07.1 COVID-19; G93.1 Anoxic brain damage, not elsewhere classified; E11.10 Type 2 diabetes mellitus with ketoacidosis without coma; E44.1 Mild protein-calorie malnutrition; E87.6 Hypokalemia; F17.210 Nicotine dependence, cigarettes, uncomplicated; R65.20 Severe sepsis without septic shock; N39.0 Urinary tract infection, site not specified; R36.9 Urethral discharge, unspecified; E87.5 Hyperkalemia; Z66 Do not resuscitate; I46.9 Cardiac arrest, cause unspecified; J93.9 Pneumothorax, unspecified; E87.4 Mixed disorder of acid-base balance; Z79.4 Long term (current) use of insulin; Z79.899 Other long term (current) drug therapy; Z68.26 Body mass index [BMI] 26.0-26.9, adult
CPT/HCPCS: 31500; 36415; 36600; 71045; 71275; 76937; 78610; 80048; 80051; 80053; 80305; 81003; 82010; 82375; 82728; 82805; 82962; 83036; 83615; 83735; 83930; 83935; 84100; 84132; 84295; 84478; 85025; 85379; 86140; 87070; 87106; 87426; 92950; 93005; 93306; 93970; 93971; 94002; 94003; 94640; 99291; A6261; A9512; C1725; C1769; J0153; J0282; J0330; J0360; J0456; J0692; J0696; J1100; J1170; J1265; J1450; J1650; J1815; J2250; J2270; J2370; J2405; J2597; J2704; J3010; J3480; J3490; J7030; J7040; J7050; J7060; J7070; Q9957; Q9967; U0003; U0005; A4315